=== PATIENT | female | born 1935 | race Caucasian/White ===

== ENCOUNTER → 2019-12-23 09:26 | Outpatient (POV) | payer MEDICARE, OTHER, SELFPAY | PROVIDERS: PCP Internal Medicine Adolescent Medicine; Visit Provider Dermatology | DX: Z00.00 Encounter for general adult medical examination without abnormal findings (principal) ==

== ENCOUNTER → 2020-02-10 13:20 | Outpatient (POV) | payer MEDICARE, OTHER, SELFPAY | PROVIDERS: Visit Provider Dermatology | DX: Z00.00 Encounter for general adult medical examination without abnormal findings (principal) ==

== ENCOUNTER → 2021-05-17 18:54 | Outpatient (CLI) | payer MEDICARE, OTHER, SELFPAY | PROVIDERS: Visit Provider Internal Medicine Adolescent Medicine | DX: R82.90 Unspecified abnormal findings in urine (principal) | CPT/HCPCS: 87086 ==

== ENCOUNTER 2024-12-22 14:40 | Emergency (ER) | payer MEDICARE, MEDICAID, SELFPAY ==
[2024-12-22 14:48] VITALS: BP 153/71; PULSE 71; RESP 16; TEMP 36.8; O2SAT 98; BMI 33.5
--- NOTE | 2024-12-22 14:53 | CT_ITS ---
PROCEDURE INFORMATION: Exam: CT Pelvis Without Contrast, Skeleton Exam date and time: 12/22/2024 4:45 PM Age: 89 years old Clinical indication: Hip pain; Left hip; Additional info: Pain in hip/xray neg TECHNIQUE: Imaging protocol: Computed tomography of the pelvis without contrast. Exam focused on the skeleton. Radiation optimization: All CT scans at this facility use at least one of these dose optimization techniques: automated exposure control; mA and/or kV adjustment per patient size (includes targeted exams where dose is matched to clinical indication); or iterative reconstruction. COMPARISON: CR XR FEMUR LT 2V 12/22/2024 4:21 PM FINDINGS: Urinary bladder: The bladder is moderately distended. 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 Soft tissues: Unremarkable. IMPRESSION: 1. Left hip arthroplasty, no evidence of fracture or dislocation. 2. Moderate the distended bladder.
--- OUTSIDE RECORDS SUMMARY | 2024-12-22 14:55 | XMS_ITS | Data Portability ---
Author Organization [facility] [place] Address [address] [place] [address] Care Team Providers Care Fur Sewer Name Role Phone JAQUELINE BELTRAN Family Medicine JAQUELINE BELTRAN Primary Care Provider Assessment No assessment recorded. Plan of Treatment Reminders Order Date Submit Date Provider Last Modified By Organization Details Last Modified Time Details Appointments None recorded. Lab CMP, serum or plasma [address] [facility] (Lab Registration) , [address] [place] [address] [place], [address], 4 08:01:58 CBC w/ auto diff [address] [facility] (Lab Registration) , [address] [place] [address] [place], [address], 4 08:01:59 hemoglobin A1C/hemoglo bin total, QN, blood [address] [facility] (Lab Registration) , [address] [place] [address] [place], [address], 4 08:01:59 TSH + free T4, serum [address] [facility] (Lab Registration) , [address] [place] [address] [place], [address], 4 08:01:59 lipids, total, serum 2023 024 [email or web address] [facility] (Lab Registration) , [address] [facility], [address], 4 08:01:59 vitamin D, 25-hydroxy, total, serum 2023 024 [facility] (Lab Registration) , [address] [place], [address], 4 20:20:39 CBC w/ auto diff [id number] [facility] (Lab Registration) , [address] [place], [address], 3 08:49:52 CMP, serum or plasma 2022 023 [email or web address] [facility] (Lab Registration) , [address] [facility], [address], 3 08:50:03 urinalysis, dipstick [address], [address] [place], [address], 3 09:05:42 vitamin B12, serum 2022 023 [facility] (Lab Registration) , [address] [place], [address], 3 21:09:18 TSH, serum or plasma 2022 023 [email or web address] [facility] (Lab Registration) , [address] [place], [address], 3 08:50:24 lipid panel, serum 2022 023 [email or web address] [facility] (Lab Registration) , [address] [facility], [address], 3 08:50:13 HbA1c (hemoglobin A1c), blood 2022 023 [facility] (Lab Registration) , [address] [place] [address] [place], [address], 3 19:31:45 culture, urine 2022 023 [facility] (Lab Registration) , [address] [place] [address] [place], [address], 3 19:44:55 iron + total iron-bindin g capacity (TIBC), serum [id number] [place] [address] Ctr (Lab Registration) , [address] [place] [address] [place], [address], 3 08:49:39 Referral None recorded. Procedures None recorded. Surgeries None recorded. Imaging None recorded. Medication Orders hydroxyzine HCl 25 mg tablet 2023 024 [facility], [address] [place] [address], [id number], 4 10:41:17 doxepin 10 mg capsule 2023 024 [facility], [address] [place] [address], [id number], 4 10:41:23 Medrol (Josse) 4 mg tablets in a dose pack 2023 024 [facility], [address] [place] [address], [id number], 4 10:41:25 clotrimazol e-betametha sone 1 %-0.05 % topical cream 2023 024 [facility], [address] [place] [address], [id number], 4 10:41:26 methylpredn isolone acetate 80 mg/mL suspension for injection 2023 024 [email or web address] Not available 13:47:21 Patient TargetsNo targets recorded. Patient Instructions Encounter Date Encounter Id Patient Instructions Last Modified By Organization Details Last Modified Time 09/19/2022 [id number] Stay Active Eat a healthy, balanced diet Stay hydrated; aim for 64 oz of water daily Exercise 2-3 days a week for 30-45 minutes Stay up to date on preventative care measures Labs drawn by Uyen Rios [facility] laborer construction or leak [employer] [email or web address] Not available 09/19/2022 08:43:03 Parts of this document were prepared using voice recognition software and may contain unrecognized dictation errors and word substitutions commonly found with electronic erecting engineer. Attempts have been made to correct errors during dictation, but some errors may remain. It should not be considered a word for word legal document, but is a record created to help myself and others care for the patient. I reserve the right to interpret this document as I believe it was intended and not necessarily the way it was transcribed. Health Assessment: [place] [facility] update: yes In general, how do you feel that your health is? Fair In the past 7 days, have had any of the following? None Do you have a Durable Power of Physician Advisor? Yes Do you have a Living Will? Yes Do you have any other Advanced Care Planning Documents? Yes Do you exercise for atleast 20 minutes 2-3 times a week? No Have you lost any weight without trying in the past 3 months? No Do you eat fewer than 2 meals a day? No Has it been over 1 year since your last saw the dentist? No Do you or your family notice any trouble with your hearing? No Do you have hearing aids? No Do you have any difficulty driving, watching TV, reading or doing other daily activities? No Do you wear corrective lenses? No Do you have any unfastened rugs or poor lighting in your home? No Do you ever ride in the car without your seatbelt? No In the past 7 days, do you need help performing any of the following activities? (Bathing, grooming, eating, dressing, toileting, dressing) Yes Do you have assistance, if needed? Yes In the past 7 days, did you need help performing any of the following tasks? (Laundry, Telephone Use, Housekeeping, Food prep, Banking/Finance, Transportation, Shopping, Taking medication) Yes Do you have someone to help you if needed? Yes Have you fallen 2 or more times in the past year? Yes Have you had any falls with injury in the past year? Yes Have you received any immunizations in the past year? No Which ones? Health Maintenance recommendations: Age related health measures. [email or web address] Not available 09/19/2022 10:42:02 08/23/2023 [id number] Parts of this document were prepared using voice recognition software and may contain unrecognized dictation errors and word substitutions commonly found with electronic erecting engineer. Attempts have been made to correct errors during dictation, but some errors may remain. It should not be considered a word for word legal document, but is a record created to help myself and others care for the patient. I reserve the right to interpret this document as I believe it was intended and not necessarily the way it was transcribed. [email or web address] Not available 08/23/2023 10:33:24 Reason for Referral None Reported. Results Created Date Observation Date Name Description Value Unit Range Abnormal Flag Note LastModifiedBy Organization Detail LastModifiedTime 09/20/1909/19/2022 CBC W/ AUTO DIFF WBC 5.09 K/uL 4.5-11 .5 Not Available [facility] (Pre-Op Clinic) [address] [place] [address] [place], [address], 09/19/2022 19:20:38 09/20/19 23 09/19/2022 CBC W/ AUTO DIFF RBC 4.17 M/uL 4.0-5. 4 Not Available [facility] (Pre-Op Clinic) [address] [place] [address] [place], [address], 09/19/2022 19:20:38 09/20/19 23 09/19/2022 CBC W/ AUTO DIFF HGB 12.4 g/dL 12.0-1 5.0 Not Available [facility] (Pre-Op Clinic) [address] [place] [address] [place], [address], 09/19/2022 19:20:38 09/20/19 23 09/19/2022 CBC W/ AUTO DIFF HCT 40.5 % 35-49 Not Available [facility] (Pre-Op Clinic) [address] [place], [address], 09/19/2022 19:20:38 09/20/19 23 09/19/2022 CBC W/ AUTO DIFF MCV 97.1 fL 80.0-1 00.0 Not Available [facility] (Pre-Op Clinic) [address] [place] [address] [place], [address], 09/19/2022 19:20:38 09/20/19 23 09/19/2022 CBC W/ AUTO DIFF MCH 29.7 pg 26.0-3 2.0 Not Available [facility] (Pre-Op Clinic) [address] [place] [address] [place], [address], 09/19/2022 19:20:38 09/20/19 23 09/19/2022 CBC W/ AUTO DIFF MCHC 30.6 g/dL 32.0-3 6.0 low Not Available [facility] (Pre-Op Clinic) [address] [place] [address] [place], [address], 09/19/2022 19:20:38 09/20/19 23 09/19/2022 CBC W/ AUTO DIFF RDW 13.2 % 11.5-1 4.5 Not Available [facility] (Pre-Op Clinic) [address] [place] [address] [place], [address], 09/19/2022 19:20:38 09/20/19 23 09/19/2022 CBC W/ AUTO DIFF platelet count 241 K/uL 142-42 4 Not Available [facility] ([facility]Op [facility]) [address] [place] [address] [place], [address], 09/19/2022 19:20:38 09/20/19 23 09/19/2022 CBC W/ AUTO DIFF MPV 10.1 fL 6.8-10 .2 Not Available [facility] (Pre[facility]Op [facility]) [address] [place] [address] [place], [address], 09/19/2022 19:20:38 09/20/19 23 09/19/2022 CBC W/ AUTO DIFF neutrophil % 59.1 % 50-70 Not Available [facility] (Pre-Op Clinic) [address] [place], [address], 09/19/2022 19:20:38 09/20/19 23 09/19/2022 CBC W/ AUTO DIFF lymphocyte % 21.6 % 18.0-4 2.0 Not Available [facility] (Pre-Op Clinic) [address] [place], [address], 09/19/2022 19:20:38 09/20/19 23 09/19/2022 CBC W/ AUTO DIFF monocyte % 11.6 % 2.0-11 .0 high Not Available [facility] (Pre-Op Clinic) [address] [place], [address], 09/19/2022 19:20:38 09/20/19 23 09/19/2022 CBC W/ AUTO DIFF eosinophil % 5.1 % 1.0-3. 0 high Not Available [facility] (Pre[facility]Op Clinic) [address] [place], [address], 09/19/2022 19:20:38 09/20/19 23 09/19/2022 CBC W/ AUTO DIFF basophil % 0.8 % 0.0-2. 0 Not Available [facility] (Pre[facility]Op Clinic) [address] [place] [address] [place], [address], 09/19/2022 19:20:38 09/20/19 23 09/19/2022 CBC W/ AUTO DIFF immature granulocytes % 1.8 % 0.0-0. 8 high Not Available [facility] (Pre-Op Clinic) [address] [place] [address] [place], [address], 09/19/2022 19:20:38 09/20/19 23 09/19/2022 CBC W/ AUTO DIFF nucleated red blood cells % 0.0 % Not Available [facility] (Pre[facility]Op Clinic) [address] [place] [address] [place], [address], 09/19/2022 19:20:38 09/20/19 23 09/19/2022 CBC W/ AUTO DIFF neutrophil # 3.01 K/uL Not Available [facility] (Pre[facility]Op [facility]) [address] [place], [address], 09/19/2022 19:20:38 09/20/19 23 09/19/2022 CBC W/ AUTO DIFF lymphocyte # 1.10 K/uL Not Available [facility] (Pre[facility]Op [facility]) [address] [place], [address], 09/19/2022 19:20:38 09/20/19 23 09/19/2022 CBC W/ AUTO DIFF monocyte # 0.59 K/uL Not Available [facility] (Pre[facility]Op [facility]) [address] [place], [address], 09/19/2022 19:20:38 09/20/19 23 09/19/2022 CBC W/ AUTO DIFF eosinophil # 0.26 K/uL Not Available [facility] (Pre[facility]Op [facility]) [address] [place], [address], 09/19/2022 19:20:38 09/20/19 23 09/19/2022 CBC W/ AUTO DIFF basophil # 0.04 K/uL Not Available [facility] (Pre-Op [facility]) [address] [place], [address], 09/19/2022 19:20:38 09/20/19 23 09/19/2022 CBC W/ AUTO DIFF immature gramulocytes # 0.09 K/uL Not Available [facility] (Pre-Op Clinic) [address] [place], [address], 09/19/2022 19:20:38 09/20/19 23 09/19/2022 CBC W/ AUTO DIFF nucleated red blood cells # 0.00 k/uL Not Available [facility] (Pre-Op Clinic) [address] [place], [address], 09/19/2022 19:20:38 09/20/19 23 09/19/2022 CBC W/ AUTO DIFF manual differential NO Not Available [facility] (Pre[facility]Op Clinic) [address] [place] [address] [place], [address], 09/19/2022 19:20:38 09/20/19 23 09/19/2022 CBC W/ AUTO DIFF note Unles s other green noted testi ng perfo [facility]med at: [facility] [address] [place] [address] Miguel Angel enamorado MD Not Available [facility] (Pre-Op Clinic) [address] [place] [address] [place], [address], 09/19/2022 19:20:38 09/20/19 23 09/19/2022 HEMOG LOBIN A1C HGB A1C 5.3 % 4.3-6. 1 HEMOG LOBIN LEVEL S ARE RELAT ED TO MEAN BLOOD GLUCO SE LEVEL S DURIN G THE PRECE DING 2-3 MONTH S. REFER ENCE RANGE NON-D IABET IC PATIE NTS: 4.3 - 6.1 % DIABE TIC PATIE NTS: 6.2 % AND ABOVE Not Available [facility] (Pre-Op Clinic) [address] [place] [address] [place], [address], 09/19/2022 19:31:45 09/20/19 23 09/19/2022 HEMOG LOBIN A1C estimated average glucose(EAG) 105 mg/dL 77-128 Not Available [facility] (Pre-Op Clinic) [address] [place] [address] [place], [address], 09/19/2022 19:31:45 09/20/19 23 09/19/2022 HEMOG LOBIN A1C note Unles s other green noted testi ng perfo rmed at: [facility] [address] [place] [address] Miguel Angel enamorado MD Not Available [facility] (Pre-Op Clinic) [address] [place] [address] [place], [address], 09/19/2022 19:31:45 09/20/19 23 09/19/2022 CULTU RE URINE W PRESU MP ID results [facility] 09-20 859 No Signi fican t Growt h at 1 Day [facility] 09-21 832 No Signi fican t Growt h at 2 Days Not Available [facility] (Pre[facility]Op Clinic) [address] [place] [address] [place], [address], 09/21/2022 08:33:56 09/20/19 23 09/19/2022 CULTU RE URINE W PRESU MP ID note Unles s other green noted testi ng perfo rmed at: [facility] [address] [place] [address] Miguel Angel enamorado MD Not Available [facility] (Pre[facility]Op Clinic) [address] [place] [address] [place], [address], 09/21/2022 08:33:56 09/20/19 23 09/19/2022 COMP METAB OLIC PANEL sodium 138 mmol/ L 137-14 7 Not Available [facility] (Pre[facility]Op Clinic) [address] [place] [address] [place], [address], 09/19/2022 20:25:24 09/20/19 23 09/19/2022 COMP METAB OLIC PANEL potassium 5.2 mmol/ L 3.5-5. 1 high Not Available [facility] (Pre-Op Clinic) [address] [place] [address] [place], [address], 09/19/2022 20:25:24 09/20/19 23 09/19/2022 COMP METAB OLIC PANEL chloride 102 mmol/ L 98-110 Not Available [facility] (Pre[facility]Op Clinic) [address] [place], [address], 09/19/2022 20:25:24 09/20/19 23 09/19/2022 COMP METAB OLIC PANEL carbon dioxide 28 mmol/ L 21-30 Not Available [facility] (Pre-Op Clinic) [address] [place], [address], 09/19/2022 20:25:24 09/20/19 23 09/19/2022 COMP METAB OLIC PANEL anion gap 8 mmol/ L 6-14 Not Available [facility] (Pre[facility]Op [facility]) [address] [place], [address], 09/19/2022 20:25:24 09/20/19 23 09/19/2022 COMP METAB OLIC PANEL glucose 97 mg/dL 70-115 Not Available [facility] (Pre[facility]Op Clinic) [address] [place], [address], 09/19/2022 20:25:24 09/20/19 23 09/19/2022 COMP METAB OLIC PANEL BUN 32 mg/dL 7-17 high Not Available [facility] (Pre[facility]Op [facility]) [address] [place], [address], 09/19/2022 20:25:24 09/20/19 23 09/19/2022 COMP METAB OLIC PANEL creatinine 1.5 mg/dL 0.5-1. 5 Not Available [facility] (Pre[facility]Op [facility]) [address] [place], [address], 09/19/2022 20:25:24 09/20/19 23 09/19/2022 COMP METAB OLIC PANEL BUN/creatini ne ratio 21 ratio 10-20 high Not Available [facility] (Pre[facility]Op Clinic) [address] [place] [address] [place], [address], 09/19/2022 20:25:24 09/20/19 23 09/19/2022 COMP METAB OLIC PANEL glom filtration rate TNP mL/mi n >60- GFR has only been valid ated for patie nts 18-70 years of age. Not Available [facility] (Pre[facility]Op [facility]) [address] [place] [address] [place], [address], 09/19/2022 20:25:24 09/20/19 23 09/19/2022 COMP METAB OLIC PANEL osmolality (calculated) 294 mosmo l/kg 275-30 1 OSMOL ALITY IS A CALCU LATIO N UTILI ZING THE SERUM /PLAS MA SODIU M, GLUCO SE AND UREA NITRO GEN (BUN) LEVEL S. FOR THE MOST ACCUR ATE RESUL T A MEASU RED SERUM OSMOL ALITY IS SUGGE STED. Not Available [facility] (Pre[facility]Op [facility]) [address] [place] [address] [place], [address], 09/19/2022 20:25:24 09/20/19 23 09/19/2022 COMP METAB OLIC PANEL total protein 7.7 g/dL 6.2-8. 2 Not Available [facility] (Pre[facility]Op [facility]) [address] [place] [address] [place], [address], 09/19/2022 20:25:24 09/20/19 23 09/19/2022 COMP METAB OLIC PANEL albumin 4.6 g/dL 3.5-5. 0 Not Available [facility] (Pre[facility]Op [facility]) [address] [place] [address] [place], [address], 09/19/2022 20:25:24 09/20/19 23 09/19/2022 COMP METAB OLIC PANEL calcium 8.8 mg/dL 8.5-10 .8 Not Available [facility] (Pre[facility]Op [facility]) [address] [place] [address] [place], [address], 09/19/2022 20:25:24 09/20/19 23 09/19/2022 COMP METAB OLIC PANEL bilirubin total 0.2 mg/dL 0.2-1. 3 Not Available [facility] (Pre[facility]Op [facility]) [address] [place] [address] [place], [address], 09/19/2022 20:25:24 09/20/19 23 09/19/2022 COMP METAB OLIC PANEL AST (SGOT) 25 IU/L 14-36 Not Available [facility] (Pre-Op Clinic) [address] [place] [address] [place], [address], 09/19/2022 20:25:24 09/20/19 23 09/19/2022 COMP METAB OLIC PANEL ALT (SGPT) 16 IU/L 0-35 Pleas e note new refer ence inter angi for ALT. Due to a recen t manuf actur er metho dolog y dean e, the refer ence inter angi for ALT is lower effec tive September 23, 2020. Not Available [facility] (Pre-Op Clinic) [address] [place] [address] [place], [address], 09/19/2022 20:25:24 09/20/19 23 09/19/2022 COMP METAB OLIC PANEL alk phosphatase 80 IU/L 38-126 Not Available [facility] (Pre-Op Clinic) [address] [place] [address] [place], [address], 09/19/2022 20:25:24 09/20/19 23 09/19/2022 COMP METAB OLIC PANEL note Unles s other green noted testi ng perfo rmed at: [facility] [address] [place] [address] Miguel Angel enamorado MD Not Available [facility] (Pre[facility]Op [facility]) [address] [place] [address] [place], [address], 09/19/2022 20:25:24 09/20/19 23 09/19/2022 LIPID PANEL cholesterol 175 mg/dL 0-200 Not Available [facility] (Pre-Op Clinic) [address] [place] [address] [place], [address], 09/19/2022 20:25:25 09/20/19 23 09/19/2022 LIPID PANEL HDL 65 mg/dL 40- Not Available [facility] (Pre-Op Clinic) [address] [place], [address], 09/19/2022 20:25:25 09/20/19 23 09/19/2022 LIPID PANEL total chol/HDL ratio 2.7 ratio 0-4 Not Available [facility] ([facility]Op [facility]) [address] [place], [address], 09/19/2022 20:25:25 09/20/19 23 09/19/2022 LIPID PANEL triglyceride 129 mg/dL 35-135 Not Available [facility] ([facility]Op [facility]) [address] [place], [address], 09/19/2022 20:25:25 09/20/19 23 09/19/2022 LIPID PANEL LDL calculated 84 mg/dL 0-130 Not Available [facility] ([facility]Op [facility]) [address] [place], [address], 09/19/2022 20:25:25 09/20/19 23 09/19/2022 LIPID PANEL VLDL calculated 26 mg/dL 0-40 Not Available [facility] ([facility]Op [facility]) [address] [place], [address], 09/19/2022 20:25:25 09/20/19 23 09/19/2022 LIPID PANEL note Unles s other green noted testi ng perfo [facility]med at: [facility] [address] [place] [address] Miguel Angel enamorado MD Not Available [facility] ([facility]Op [facility]) [address] [place], [address], 09/19/2022 20:25:25 09/20/19 23 09/19/2022 IRON STUDY W FE/TI BC/UI BC/%S AT iron 136 ug/dL 37-170 Not Available [facility] ([facility]Op [facility]) [address] [place], [address], 09/19/2022 20:28:42 09/20/19 23 09/19/2022 IRON STUDY W FE/TI BC/UI BC/%S AT total iron bind cap. 393 ug/dL 265-49 7 Not Available [facility] ([facility]Op [facility]) [address] [place] [address] [place], [address], 09/19/2022 20:28:42 09/20/19 23 09/19/2022 IRON STUDY W FE/TI BC/UI BC/%S AT unsaturated iron binding cap 257 ug/dL 150-37 5 Not Available [facility] (Pre[facility]Op [facility]) [address] [place] [address] [place], [address], 09/19/2022 20:28:42 09/20/19 23 09/19/2022 IRON STUDY W FE/TI BC/UI BC/%S AT % saturation 35 % 15-55 Not Available [facility] ([facility]Op [facility]) [address] [place] [address] [place], [address], 09/19/2022 20:28:42 09/20/19 23 09/19/2022 IRON STUDY W FE/TI BC/UI BC/%S AT note Unles s other green noted testi ng perfo rmed at: [facility] [address] [place] [address] Miguel Angel enamorado MD Not Available [facility] ([facility]Op [facility]) [address] [place] [address] [place], [address], 09/19/2022 20:28:42 09/20/19 23 09/19/2022 TSH thyroid stim hormone 1.71 uIU/m L 0.465- 4.68 Not Available [facility] ([facility]Op [facility]) [address] [place] [address] [place], [address], 09/19/2022 20:50:51 09/20/19 23 09/19/2022 TSH note Unles s other green noted testi ng perfo rmed at: [facility] [address] [place] [address] Miguel Angel enamorado MD Not Available [facility] ([facility]Op [facility]) [address] [place] [address] [place], [address], 09/19/2022 20:50:51 09/20/19 23 09/19/2022 VITAM IN B12 vitamin B12 978 pg/mL 239-93 1 high Not Available [facility] ([facility]Op [facility]) [address] [place] [address] [place], [address], 09/19/2022 21:09:18 09/20/19 23 09/19/2022 VITAM IN B12 note Unles s other green noted testi ng [facility] [address] [place] [address] Miguel Angel enamorado MD Not Available [facility] (Pre[facility]Op [facility]) [address] [place] [address] [place], [address], 09/19/2022 21:09:18 09/20/19 23 09/19/2022 urina lysis , dipst ick Leukocytes (reference range) small Not Available [address], [address], 09/19/2022 08:42:09 09/20/19 23 09/19/2022 urina lysis , dipst ick Nitrite (reference range:) negati ve Not Available [facility] [address] [place], [address], 09/19/2022 08:42:09 09/20/19 23 09/19/2022 urina lysis , dipst ick Urobilinogen (reference range) 0.2 Not Available [address], [address], 09/19/2022 08:42:09 09/20/19 23 09/19/2022 urina lysis , dipst ick Protein (reference range) negati ve Not Available [address] [place], [address], 09/19/2022 08:42:09 09/20/19 23 09/19/2022 urina lysis , dipst ick pH (reference range 5-8.5) 5.5 Not Available [place] [address], [place], [address], 09/19/2022 08:42:09 09/20/19 23 09/19/2022 urina lysis , dipst ick Blood (reference range:) modera te Not Available [place] [address], [place], [address], 09/19/2022 08:42:09 09/20/19 23 09/19/2022 urina lysis , dipst ick Specific [place] (reference range) 1.010 Not Available [place] [address], [place], [address], 09/19/2022 08:42:09 09/20/19 23 09/19/2022 urina lysis , dipst ick Ketone (reference range) negati ve Not Available [place] [address], [place], [address], 09/19/2022 08:42:09 09/20/19 23 09/19/2022 urina lysis , dipst ick Bilirubin (reference range) negati ve Not Available [place] [address], [place], [address], 09/19/2022 08:42:09 09/20/19 23 09/19/2022 urina lysis , dipst ick Glucose (reference range) negati ve Not Available [facility] [address], [place], [address], 09/19/2022 08:42:09 09/20/19 09/19/2022 urina lysis , dipst ick Color (reference range: yellow-brown ) Yellow Not Available [facility] [address] [facility], [place], [address], 09/19/2022 08:42:09 08/23/19 24 08/23/2023 CBC W/ AUTO DIFF WBC 6.69 K/uL 4.5-11 .5 Not Available [facility] (Pre[facility]Op [facility]) [address] [place] [address] [place], [address], 08/23/2023 19:11:35 08/23/19 24 08/23/2023 CBC W/ AUTO DIFF RBC 3.72 M/uL 4.0-5. 4 low Not Available [facility] (Pre[facility]Op [facility]) [address] [place] [address] [place], [address], 08/23/2023 19:11:35 08/23/19 24 08/23/2023 CBC W/ AUTO DIFF HGB 11.3 g/dL 12.0-1 5.0 low Not Available [facility] (Pre-Op Clinic) [address] [place] [address] [place], [address], 08/23/2023 19:11:35 08/23/19 24 08/23/2023 CBC W/ AUTO DIFF HCT 37.1 % 35-49 Not Available [facility] (Pre-Op Clinic) [address] [place] [address] [place], [address], 08/23/2023 19:11:35 08/23/19 24 08/23/2023 CBC W/ AUTO DIFF MCV 99.7 fL 80.0-1 00.0 Not Available [facility] (Pre-Op Clinic) [address] [place] [address] [place], [address], 08/23/2023 19:11:35 08/23/19 24 08/23/2023 CBC W/ AUTO DIFF MCH 30.4 pg 26.0-3 2.0 Not Available [facility] (Pre-Op Clinic) [address] [place] [address] [place], [address], 08/23/2023 19:11:35 08/23/19 24 08/23/2023 CBC W/ AUTO DIFF MCHC 30.5 g/dL 32.0-3 6.0 low Not Available [facility] (Pre-Op [facility]) [address] [place] [address] [place], [address], 08/23/2023 19:11:35 08/23/19 24 08/23/2023 CBC W/ AUTO DIFF RDW 15.0 % 11.5-1 4.5 high Not Available [facility] (Pre[facility]Op [facility]) [address] [place] [address] [place], [address], 08/23/2023 19:11:35 08/23/19 24 08/23/2023 CBC W/ AUTO DIFF platelet count 264 K/uL 142-42 4 Not Available [facility] (Pre[facility]Op [facility]) [address] [place] [address] [place], [address], 08/23/2023 19:11:35 08/23/19 24 08/23/2023 CBC W/ AUTO DIFF MPV 10.5 fL 6.8-10 .2 high Not Available [facility] (Pre[facility]Op [facility]) [address] [place] [address] [place], [address], 08/23/2023 19:11:35 08/23/19 24 08/23/2023 CBC W/ AUTO DIFF neutrophil % 72.1 % 50-70 high Not Available [facility] (Pre[facility]Op [facility]) [address] [place] [address] [place], [address], 08/23/2023 19:11:35 08/23/19 24 08/23/2023 CBC W/ AUTO DIFF lymphocyte % 10.9 % 18.0-4 2.0 low Not Available [facility] (Pre[facility]Op [facility]) [address] [place] [address] [place], [address], 08/23/2023 19:11:35 08/23/19 24 08/23/2023 CBC W/ AUTO DIFF monocyte % 10.8 % 2.0-11 .0 Not Available [facility] (Pre[facility]Op [facility]) [address] [facility], [address], 08/23/2023 19:11:35 08/23/19 24 08/23/2023 CBC W/ AUTO DIFF eosinophil % 4.0 % 1.0-3. 0 high Not Available [facility] (Pre[facility]Op [facility]) [address] [place], [address], 08/23/2023 19:11:35 08/23/19 24 08/23/2023 CBC W/ AUTO DIFF basophil % 0.9 % 0.0-2. 0 Not Available [facility] (Pre[facility]Op [facility]) [address] [place] [address] [place], [address], 08/23/2023 19:11:35 08/23/19 24 08/23/2023 CBC W/ AUTO DIFF immature granulocytes % 1.3 % 0.0-0. 8 high Not Available [facility] ([facility]Op [facility]) [address] [place] [address] [place], [address], 08/23/2023 19:11:35 08/23/19 24 08/23/2023 CBC W/ AUTO DIFF nucleated red blood cells % 0.0 % Not Available [facility] (Pre-Op Clinic) [address] [place] [address] [place], [address], 08/23/2023 19:11:35 08/23/19 24 08/23/2023 CBC W/ AUTO DIFF neutrophil # 4.82 K/uL Not Available [facility] (Pre-Op Clinic) [address] [place] [address] [place], [address], 08/23/2023 19:11:35 08/23/19 24 08/23/2023 CBC W/ AUTO DIFF lymphocyte # 0.73 K/uL Not Available [facility] (Pre-Op Clinic) [address] [place] [address] [place], [address], 08/23/2023 19:11:35 08/23/19 24 08/23/2023 CBC W/ AUTO DIFF monocyte # 0.72 K/uL Not Available [facility] ([facility]Op [facility]) [address] [place] [address] [place], [address], 08/23/2023 19:11:35 08/23/19 24 08/23/2023 CBC W/ AUTO DIFF eosinophil # 0.27 K/uL Not Available [facility] ([facility]Op [facility]) [address] [place] [address] [place], [address], 08/23/2023 19:11:35 08/23/19 24 08/23/2023 CBC W/ AUTO DIFF basophil # 0.06 K/uL Not Available [facility] (Pre-Op [facility]) [address] [place] [address] [place], [address], 08/23/2023 19:11:35 08/23/19 24 08/23/2023 CBC W/ AUTO DIFF immature gramulocytes # 0.09 K/uL Not Available [facility] ([facility]Op [facility]) [address] [place] [address] [place], [address], 08/23/2023 19:11:35 08/23/19 24 08/23/2023 CBC W/ AUTO DIFF nucleated red blood cells # 0.00 k/uL Not Available [facility] (Pre-Op [facility]) [address] [place] [address] [place], [address], 08/23/2023 19:11:35 08/23/19 24 08/23/2023 CBC W/ AUTO DIFF manual differential NO Not Available [facility] (Pre-Op Clinic) [address] [place] [address] [place], [address], 08/23/2023 19:11:35 08/23/19 24 08/23/2023 CBC W/ AUTO DIFF note Unles s other green noted testi ng perfo [facility]med at: [facility] [address] [place] [address] Miguel Angel enamorado MD Not Available [facility] (Pre[facility]Op [facility]) [address] [place] [address] [place], [address], 08/23/2023 19:11:35 08/23/19 24 08/23/2023 COMP METAB OLIC PANEL sodium 141 mmol/ L 137-14 7 Not Available [facility] ([facility]Op [facility]) [address] [place] [address] [place], [address], 08/23/2023 20:11:04 08/23/19 24 08/23/2023 COMP METAB OLIC PANEL potassium 4.9 mmol/ L 3.5-5. 1 Not Available [facility] ([facility]Op [facility]) [address] [place] [address] [place], [address], 08/23/2023 20:11:04 08/23/19 24 08/23/2023 COMP METAB OLIC PANEL chloride 106 mmol/ L 98-110 Not Available [facility] ([facility]Op [facility]) [address] [place] [address] [place], [address], 08/23/2023 20:11:04 08/23/19 24 08/23/2023 COMP METAB OLIC PANEL carbon dioxide 26 mmol/ L 21-30 Not Available [facility] (Pre[facility]Op [facility]) [address] [place] [address] [place], [address], 08/23/2023 20:11:04 08/23/19 24 08/23/2023 COMP METAB OLIC PANEL anion gap 9 mmol/ L 6-14 Not Available [facility] ([facility]Op [facility]) [address] [place] [address] [place], [address], 08/23/2023 20:11:04 08/23/19 24 08/23/2023 COMP METAB OLIC PANEL glucose 99 mg/dL 70-115 Not Available [facility] (Pre-Op [facility]) [address] [place] [address] [place], [address], 08/23/2023 20:11:04 08/23/19 24 08/23/2023 COMP METAB OLIC PANEL BUN 34 mg/dL 7-17 high Not Available [facility] ([facility]) [address] [place] [address] [place], [address], 08/23/2023 20:11:04 08/23/19 24 08/23/2023 COMP METAB OLIC PANEL creatinine 1.7 mg/dL 0.5-1. 5 high Not Available [facility] ([facility]Op [facility]) [address] [place] [address] [place], [address], 08/23/2023 20:11:04 08/23/19 24 08/23/2023 COMP METAB OLIC PANEL BUN/creatini ne ratio 20 ratio 10-20 Not Available [facility] ([facility]Op [facility]) [address] [place] [address] [place], [address], 08/23/2023 20:11:04 08/23/19 24 08/23/2023 COMP METAB OLIC PANEL glom filtration rate TNP mL/mi n >60- GFR has only been valid ated for patie nts 18-70 years of age. Not Available [facility] (Pre[facility]Op [facility]) [address] [place] [address] [place], [address], 08/23/2023 20:11:04 08/23/19 24 08/23/2023 COMP METAB OLIC PANEL osmolality (calculated) 301 mosmo l/kg 275-30 1 OSMOL ALITY IS A CALCU LATIO N UTILI ZING THE SERUM /PLAS MA SODIU M, GLUCO SE AND UREA NITRO GEN (BUN) LEVEL S. FOR THE MOST ACCUR ATE RESUL T A MEASU RED SERUM OSMOL ALITY IS SUGGE STED. Not Available [facility] ([facility]Op [facility]) [address] [place] [address] [place], [address], 08/23/2023 20:11:04 08/23/19 24 08/23/2023 COMP METAB OLIC PANEL total protein 7.1 g/dL 6.2-8. 2 Not Available [facility] (Pre-Op [facility]) [address] [place] [address] [place], [address], 08/23/2023 20:11:04 08/23/19 24 08/23/2023 COMP METAB OLIC PANEL albumin 4.1 g/dL 3.5-5. 0 Not Available [facility] ([facility]Op [facility]) [address] [place] [address] [place], [address], 08/23/2023 20:11:04 08/23/19 24 08/23/2023 COMP METAB OLIC PANEL calcium 8.8 mg/dL 8.5-10 .8 Not Available [facility] ([facility]) [address] [place] [address] [place], [address], 08/23/2023 20:11:04 08/23/19 24 08/23/2023 COMP METAB OLIC PANEL bilirubin total 0.4 mg/dL 0.2-1. 3 Not Available [facility] ([facility]Op [facility]) [address] [place] [address] [place], [address], 08/23/2023 20:11:04 08/23/19 24 08/23/2023 COMP METAB OLIC PANEL AST (SGOT) 23 IU/L 14-36 Not Available [facility] ([facility]) [address] [place] [address] [place], [address], 08/23/2023 20:11:04 08/23/19 24 08/23/2023 COMP METAB OLIC PANEL ALT (SGPT) 15 IU/L 0-35 Pleas e note new refer ence inter angi for ALT. Due to a recen t manuf actur er metho dolog y dean e, the refer ence inter angi for ALT is lower effec tive September 23, 2020. Not Available [facility] ([facility]Op [facility]) [address] [place] [address] [place], [address], 08/23/2023 20:11:04 08/23/19 24 08/23/2023 COMP METAB OLIC PANEL alk phosphatase 89 IU/L 38-126 Not Available [facility] (Pre[facility]Op [facility]) [address] [facility], [address], 08/23/2023 20:11:04 08/23/19 24 08/23/2023 COMP METAB OLIC PANEL note Unles s other green noted testi ng perfo rmed at: [facility] [address] [place] [address] Miguel Angel enamorado MD Not Available [facility] ([facility]Op [facility]) [address] [place], [address], 08/23/2023 20:11:04 08/23/19 24 08/23/2023 LIPID PANEL cholesterol 136 mg/dL 0-200 Not Available [facility] ([facility]) [address] [place], [address], 08/23/2023 20:11:05 08/23/19 24 08/23/2023 LIPID PANEL HDL 51 mg/dL 40- Not Available [facility] (Pre[facility]Op [facility]) [address] [place], [address], 08/23/2023 20:11:05 08/23/19 24 08/23/2023 LIPID PANEL total chol/HDL ratio 2.7 ratio 0-4 Not Available [facility] (Pre[facility]Op [facility]) [address] [place], [address], 08/23/2023 20:11:05 08/23/19 24 08/23/2023 LIPID PANEL triglyceride 105 mg/dL 35-135 Not Available [facility] ([facility]Op [facility]) [address] [facility], [address], 08/23/2023 20:11:05 08/23/19 24 08/23/2023 LIPID PANEL LDL calculated 64 mg/dL 0-130 Not Available [facility] ([facility]Op [facility]) [address] [place], [address], 08/23/2023 20:11:05 08/23/19 24 08/23/2023 LIPID PANEL VLDL calculated 21 mg/dL 0-40 Not Available [facility] ([facility]) [address] [place] [address] [place], [address], 08/23/2023 20:11:05 08/23/19 24 08/23/2023 LIPID PANEL note Unles s other green noted testi ng perfo [facility]med at: [facility] [address] [place] [address] Miguel Angel enamorado MD Not Available [facility] ([facility]Op [facility]) [address] [place] [address] [place], [address], 08/23/2023 20:11:05 08/23/19 24 08/23/2023 HEMOG LOBIN A1C HGB A1C 5.3 % 4.3-6. 1 HEMOG LOBIN LEVEL S ARE RELAT ED TO MEAN BLOOD GLUCO SE LEVEL S DURIN G THE PRECE DING 2-3 MONTH S. REFER ENCE RANGE NON-D IABET IC PATIE NTS: 4.3 - 6.1 % DIABE TIC PATIE NTS: 6.2 % AND ABOVE Not Available [facility] (Pre-Op [facility]) [address] [place] [address] [place], [address], 08/23/2023 20:15:24 08/23/19 24 08/23/2023 HEMOG LOBIN A1C estimated average glucose(EAG) 105 mg/dL 77-128 Not Available [facility] ([facility]Op [facility]) [address] [place] [address] [place], [address], 08/23/2023 20:15:24 08/23/19 24 08/23/2023 HEMOG LOBIN A1C note Unles s other green noted testi ng perfo rmed at: [facility] [address] [place] [address] Miguel Angel enamorado MD Not Available [facility] ([facility]Op [facility]) [address] [place] [address] [place], [address], 08/23/2023 20:15:24 08/23/19 24 08/23/2023 VITAM IN D, 25-HY DROXY vitamin D, 25-hydroxy 51.6 NG/mL 30-100 Vitam in D defic iency has been defin ed by the [facility] and [facility] rine [facility] ty pract ice guide line as a level of serum 25-OH vitam in D less than 20 ng/mL . The Endoc rine Socie ty went on to fur er defin e vitam in D insuf ficie ncy as a level betwe en 20 and 29 ng/mL . Level s of vitam in D betwe en 30 and 100 ng/mL are consi dered suffi ent. Level s above 100 ng/mL are consi dered poten tiall y toxic . Not Available [facility] ([facility]Op [facility]) [address] [place] [address] [place], [address], 08/23/2023 20:20:39 08/23/19 24 08/23/2023 VITAM IN D, 25-HY DROXY note Unles s other green noted testi ng perfo rmed at: [facility] [address] [place] [address] Miguel Angel enamorado MD Not Available [facility] ([facility]Op [facility]) [address] [place] [address] [place], [address], 08/23/2023 20:20:39 08/23/19 24 08/23/2023 T4 FREE T4 free 1.09 NG/dL 0.78-2 .19 Not Available [facility] ([facility]Op [facility]) [address] [place] [address] [place], [address], 08/23/2023 20:26:01 08/23/19 24 08/23/2023 T4 FREE note Unles s other green noted testi ng perfo rmed at: [facility] [address] [place] [address] Miguel Angel enamorado MD Not Available [facility] ([facility]) [address] [place] [address] [place], [address], 08/23/2023 20:26:01 08/23/19 24 08/23/2023 TSH thyroid stim hormone 1.57 uIU/m L 0.465- 4.68 Not Available [facility] ([facility]Op [facility]) [address] [place] [address] [place], [address], 08/23/2023 20:45:06 08/23/19 24 08/23/2023 TSH note Dana green noted testi ng perfo rmed at: [facility] [address] [place] [address] Miguel Angel enamorado MD Not Available [facility] ([facility]) [address] [place] [address] [place], [address], 08/23/2023 20:45:06 Result Notes None recorded. Problems Name Problem SNOMED Code Status Onset Date Resolution Date Notes Provider Name and Address Organization Details Recorded Time Pain 05236033 Active phuong maloney null, [place] - [facility] - [facility] & [place] 3 08:15:08 Wedge fracture of lumbar vertebra 853355850 Active phuong maloney null[place] [facility] - [facility] & [place] 3 08:15:08 Acute pulmonary edema 17143552 Active phuong maloney [place] [facility] - [facility] & [place] 3 08:15:08 Atrial fibrillation 90171439 Active phuong [place] [facility] - [facility] & [place] 3 08:15:08 Visual hallucinations 54723576 Active phuong [place] [facility] - [facility] & [place] 3 08:15:09 Cyst of pancreas 39821548 Active 2022 phuong [place] [facility] - [place] & [place] 3 08:15:08 Irritable bowel syndrome with diarrhea 586397677 Active 2022 phuong [place] [facility] [place] & [place] 3 08:15:08 Iron deficiency anemia 30030509 Active 2022 phuong [place] [facility] - [place] & [place] 3 08:15:09 Fatigue 02083135 Active 2022 Jaqueline Beltran NP [address], [address], [place], [address], [place] [facility] - [place] & [place] 3 08:42:40 Blood in urine 55029516 Active 2022 phuong [place] [facility] [place] & [place] 3 09:07:21 Pruritic rash 74900614 Active 2022 Jaqueline Beltran NP [address], [address], [place], [address], [place] [facility] [place] & [place] 3 16:21:02 Generalized anxiety disorder 99032378 Active 2022 Jaqueline Beltran NP [address], [address], [place], [address], [place] [facility] [place] & [place] 3 14:31:09 Vitamin B12 deficiency (non anemic) 70487341 Active 2023 Jaqueline Beltran NP [address], [address], [place], [address], [place] [facility] [place] & [place] 4 14:12:39 Chronic constipation 963131669 Active 2023 Jaqueline Beltran NP [address], [address], [place], [address], [place] [facility] [place] & [place] 4 14:12:50 Acute cystitis 89496791 Active 2023 Jaqueline Beltran NP [address], [address], [place], [address], [place] [facility] [place] & [place] 4 17:03:00 Problem Notes None recorded. Procedures Surgical History Date Name Laterality Status Provider Name and Address Organization Details Recorded Time 2 Other completed Phuong HERBERT [facility] & [place] 01/04/2023 08:52:59 2 Back Surgery completed Phuong HERBERT [facility] & [place] 01/04/2023 08:52:59 2 Joint Replacement completed Phuong HERBERT [facility] & [place] 01/04/2023 08:52:59 3 Pacemaker/Defib rillator completed Phuong HERBERT [facility] & [place] 01/04/2023 08:52:59 0 Breast Surgery completed Phuong BLEVINS KEON [facility] & [place] 01/04/2023 08:52:59 0 Mastectomy completed Phuong HERBERT [facility] & [place] 01/04/2023 08:52:59 Abdominal Surgery completed Phuong HERBERT [facility] & [place] 01/04/2023 08:52:59 Imaging Results None recorded. Procedure Notes None recorded. Medical Equipment None Reported. Allergies Allergen ID Allergen Name Allergen Category Reaction Reaction Severity Criticality Documentation Date Start Date Code Code System Note Provider Name and Address Organization Details Recorded Time 68573 Product containin g penicilli n (product) medicatio n swelling severe Not available 09/19/2022 [id number] 8001 SNOMED FELICITY daly [facility] & [place] 3 08:15:23 Medications Name Sig Start Date Stop Date Status Note LastModified by Organization Details LastModified Time quetiapine 25 mg tablet TAKE 1 TABLET BY MOUTH ONCE DAILY ONCE DAILY AT BEDTIME active Not Available Not Available No t Available furosemide 10 mg/mL injection solution 40 mg by injection route. 04/10 completed Not Available Not Available Not Available lidocaine HCl 10 mg/mL (1 %) injection solution 20 mL by injection route. 04/13 completed Not Available Not Available Not Available potassium chloride ER 10 mEq capsule,ext ended release Take 1 capsule 3 times a week by oral route with meals for 90 days. 08/22 completed Not Available Not Available Not Available donepezil 5 mg tablet TAKE 1 TABLET BY MOUTH ONCE DAILY AT BEDTIME active Not Available Not Available No t Available triamcinolo ne acetonide 0.5 % topical cream APPLY TO AFFECTED AREA TWICE DAILY NEEDED active Not Available Not Available No t Available cetirizine 10 mg tablet 10 mg by oral route. 04/14 completed Not Available Not Available Not Available atorvastati n 10 mg tablet 10 mg by oral route. 04/14 completed Not Available Not Available Not Available simethicone 180 mg capsule 180 mg by oral route. 2021 active Not Available Not Available Not Avai lable atenolol 100 mg tablet TAKE 1 TABLET BY MOUTH ONCE DAILY active Not Available Not Available No t Available hydrocodone 5 mg-acetamin ophen 325 mg tablet 1 tablet by oral route. 04/14 completed Not Available Not Available Not Available lorazepam 2 mg/mL injection solution 0.5 mg by injection route. 04/13 completed Not Available Not Available Not Available diltiazem CD 240 mg capsule,ext ended release 24 hr TAKE 1 CAPSULE BY MOUTH ONCE DAILY. 2023 active Not Available Not Available Not Avai lable simvastatin 10 mg tablet TAKE 1 TABLET BY MOUTH ONCE DAILY AT BEDTIME active Not Available Not Available No t Available cyanocobala min (vit B-12) 1,000 mcg tablet TAKE 1 TABLET BY MOUTH ONCE DAILY active Not Available Not Available No t Available diltiazem ER 240 mg capsule,24 hr,extended release active Not Available Not Available Not Available triamcinolo ne acetonide 0.5 % topical ointment TOPICAL APPLY TWICE DAILY TO AREAS NEEDED FOR ITCHING. 08/24 completed Not Available Not Available Not Available potassium chloride ER 10 mEq tablet,exte nded release Take 1 tablet by oral route. 10/10 completed Not Available Not Available Not Available melatonin 3 mg tablet 6 mg by oral route. 04/14 completed Not Available Not Available Not Available amlodipine 5 mg tablet 10 mg by oral route. 04/11 completed Not Available Not Available Not Available doxepin 10 mg capsule TAKE 1 CAPSULE BY MOUTH ONCE DAILY AT BEDTIME active Not Available Not Available No t Available hydrocodone 10 mg-acetamin ophen 325 mg tablet 1 tablet by oral route. 04/14 completed Not Available Not Available Not Available aspirin 81 mg tablet,willy yed release TAKE 1 TABLET BY MOUTH ONCE DAILY active Not Available Not Available No t Available triamcinolo ne acetonide 0.1 % topical cream 08/22 completed Not Available Not Available Not Available methylpredn isolone acetate 80 mg/mL suspension for injection Take 80 mg by injection route. 2023 active Not Available Not Available Not Avai lable amlodipine 10 mg tablet Take 10 mg by oral route. 08/22 completed Not Available Not Available Not Available hydrocodone 7.5 mg-acetamin ophen 325 mg tablet Take 1 tablet by oral route. 08/22 completed Not Available Not Available Not Available pantoprazol e 40 mg tablet,willy yed release 40 mg by oral route. 04/14 completed Not Available Not Available Not Available erythromyci n 5 mg/gram (0.5 %) eye ointment 08/24 completed Not Available Not Available Not Available diphenhydra mine 25 mg capsule 25 mg by oral route. 04/14 completed Not Available Not Available Not Available clotrimazol e-betametha sone 1 %-0.05 % topical cream apply to the affected and surroundi ng areas of skin TWICE DAILY in the morning and evening for 2 weeks. active Not Available Not Available No t Available halobetasol propionate 0.05 % topical ointment APPLY TO AFFECTED AREAS TWICE A DAY FOR 2 WEEKS. -OCCLUDE WITH SARAN WRAP AT NIGHT TIME APPLICATI ON. 08/24 completed Not Available Not Available Not Available hyoscyamine 0.[address] 1 tablet every 6 hours by sublingua l route as needed for 30 days. 2022 active Not Available Not Available Not Avai lable lidocaine 5 % topical patch 1 pat by topical route. 2021 active Not Available Not Available Not Avai lable fentanyl (PF) 50 mcg/mL injection solution 25 microgram s by injection route. 04/14 completed Not Available Not Available Not Available Mapap (acetaminop hen) 325 mg tablet 650 mg by oral route. 04/14 completed Not Available Not Available Not Available betamethaso ne dipropionat e 0.05 % topical cream APPLY A THIN LAYER TOPICALLY TO AFFECTED AREAS ONCE DAILY. active Not Available Not Available No t Available betamethaso ne, augmented 0.05 % topical ointment APPLY A THIN LAYER TO THE AFFECTED AREA DAILY FOR 7 DAYS 08/22 completed Not Available Not Available Not Available diltiazem CD 120 mg capsule,ext ended release 24 hr 240 mg by oral route. 04/11 completed Not Available Not Available Not Available hydroxyzine HCl 25 mg tablet TAKE 1 TABLET BY MOUTH 3 TIMES DAILY DIRECTED active Not Available Not Available No t Available furosemide 20 mg tablet 08/24 completed Not Available Not Available Not Available sodium chloride 0.9 % intravenous solution 1000 mL by intraven. route. 04/12 completed Not Available Not Available Not Available ergocalcife rol (vitamin D2) 1,250 mcg (50,000 unit) capsule TAKE 1 CAPSULE BY MOUTH EVERY WEEK active Not Available Not Available No t Available methylpredn isolone 4 mg tablets in a dose pack take DIRECTED on dose package with food active Not Available Not Available No t Available hydroxyzine HCl 10 mg tablet TAKE 1 TABLET BY MOUTH TWICE DAILY active Not Available Not Available No t Available cefdinir 300 mg capsule TAKE 1 CAPSULE BY ORAL ROUTE 2 TIMES PER DAY FOR 5 DAYS 08/24 completed Not Available Not Available Not Available atenolol 50 mg tablet 100 mg by oral route. active Not Available Not Available No t Available loratadine 10 mg tablet TAKE 1 TABLET BY MOUTH ONCE DAILY. active Not Available Not Available No t Available clindamycin 600 mg/50 mL in 5 % dextrose intravenous piggyback 600 mg by intraven. route. 04/13 completed Not Available Not Available Not Available hydroxyzine pamoate 25 mg capsule TAKE 1 CAPSULE BY MOUTH TWICE DAILY 08/24 completed Not Available Not Available Not Available enoxaparin 40 mg/0.4 mL subcutaneou s syringe 40 mg by sub-q route. 04/14 completed Not Available Not Available Not Available sodium chloride 0.9 % (flush) injection syringe 10 mL by injection route. 04/14 completed Not Available Not Available Not Available hydromorpho ne 1 mg/mL injection syringe 1 mg by injection route. 04/14 completed Not Available Not Available Not Available escitalopra m 10 mg tablet TAKE 1 TABLET BY MOUTH ONCE DAILY active Not Available Not Available No t Available escitalopra m 20 mg tablet 10 mg by oral route. 04/14 completed Not Available Not Available Not Available potassium chloride ER 10 mEq tablet,exte nded release(par t/cryst) 10 milliequi valents by oral route. 08/24 completed Not Available Not Available Not Available nitrofurant oin monohydrate /macrocryst als 100 mg capsule Take 1 capsule every 12 hours by oral route for 10 days. active Not Available Not Available No t Available Natural Fiber Laxative (aspartame) oral powder mix 1 teaspoon in 8 ounces of water and drink once daily active Not Available Not Available No t Available melatonin active Not Available Not Jennifer ilable Not Available quetiapine 50 mg tablet 50 mg by oral route. 04/11 completed Not Available Not Available Not Available ondansetron HCl (PF) 4 mg/2 mL injection solution 4 mg by injection route. 04/14 completed Not Available Not Available Not Available cholecalcif grisel (vitamin D3) 1,250 mcg (50,000 unit) capsule 1 capsule by oral route. 2021 active Not Available Not Available Not Avai lable FeroSul 325 mg (65 mg iron) tablet TAKE 1 TABLET BY MOUTH ONCE DAILY. active Not Available Not Available No t Available melatonin 5 mg tablet TAKE 2 TABLETS BY MOUTH ONCE DAILY AT BEDTIME for sleep active Not Available Not Available No t Available Multaq 400 mg tablet TAKE 1 TABLET BY MOUTH TWICE DAILY active Not Available Not Available No t Available Calmoseptin e 0.44 %-20.6 % topical ointment APPLY TO BUTTOCK/G ROIN AREA 4 TIMES DAILY NEEDED active Not Available Not Available No t Available Xarelto 20 mg tablet TAKE 1 TABLET BY MOUTH EVERY EVENING ONCE DAILY AT BEDTIME active Not Available Not Available No t Available morphine 10 mg/mL intravenous syringe 5 mg by intraven. route. 04/14 completed Not Available Not Available Not Available hydromorpho ne 1 mg/mL injection solution 0.5 mg by injection route. 04/14 completed Not Available Not Available Not Available Vitals Date Recorded Body height Body mass index (BMI) Body weight Body temperature Oxygen saturation Oxygen saturation in Arterial blood by Pulse oximetry Heart rate Systolic And Diastolic Provider Name and Address Organization Details Last Updated DateTime 4 162.56 cm 37.8 kg/m2 70482.3 2 g 97.9 [degF] 96 % 96 % 70 /min 120/64 mm[Hg] [facility] & [place] 4 10:10:03 Date Recorded Body weight Body mass index (BMI) Body height Body temperature Oxygen saturation Oxygen saturation in Arterial blood by Pulse oximetry Heart rate Systolic And Diastolic Provider Name and Address Organization Details Last Updated DateTime 3 67693.6 7 g 33.6 kg/m2 162.56 cm 96.7 [degF] 97 % 97 % 74 /min 120/78 mm[Hg] phuong maloney [facility] & [place] 3 08:13:37 Social History Question Answer Notes LastModified by Organizat ion Details LastModified Time Tobacco Smoking Status Former Smoker phuong mosleyland [facility], [facility] & [place] 09/19/2022 08:23:22 Do You Have An Advance Directive? Yes Information not available 01/04/2023 Are You Blind Or Do You Have Difficulty Seeing? Yes Information not available 01/04/2023 What Was The Date Of Your Most Recent Tobacco Screening? 09/17/2022 Information not available 01/04/2023 Are You Passively Exposed To Smoke? No Information not available 01/04/2023 How Much Tobacco Do You Smoke? No Information not available 01/04/2023 How Many Years Have You Smoked Tobacco? 60 Information not available 01/04/2023 Sex: Female Functional Status Question Answer Note LastModified by Organizat ion Details LastModified Time Do you use any illicit or recreational drugs? No [place] [id number] Information not available 09/19/2022 What is your level of alcohol consumption? None [email or web address] Information not available 09/19/2022 Do you or have you ever used smokeless tobacco? Never used smokeless tobacco Information not available 01/04/2023 What is your exercise level? None Information not available 01/04/2023 Mental Status None recorded. Family History Nothing Reported. Medical History Condition Response Vision or Eye Problems Y GI Problems Y Congestive Heart Failure (CHF) Y Eczema Y Back Problems Y Dementia Y Gynecological HistoryNo gynecological history recorded. Obstetrics History GPAL:G 0 P 0 0 0 0 Immunizations Vaccine Type Date Status Note Provider Nam e and Address Organization Details Recorded Time Influenza, split virus, quadrivalent, preservative 7 completed September [place], [place] - [facility] & [place] 08/23/2023 10:10:25 COVID-19, mRNA, LNP-S, PF, 100 mcg/0.5mL dose or 50 mcg/0.25mL dose 2 completed September [place], [place] - [facility] & [place] 08/23/2023 10:10:25 COVID-19, mRNA, LNP-S, PF, 100 mcg/0.5mL dose or 50 mcg/0.25mL dose 1 completed [place] [facility] & [place] 08/23/2023 10:10:25 COVID-19, mRNA, LNP-S, PF, 100 mcg/0.5mL dose or 50 mcg/0.25mL dose 1 completed September [place], [place] - [facility] & [place] 08/23/2023 10:10:25 COVID-19, mRNA, LNP-S, PF, 100 mcg/0.5mL dose or 50 mcg/0.25mL dose 2 completed September FEL[place]ITY Avend[place] - [facility] - [place] & [place] 08/23/2023 10:10:25 Pneumococcal conjugate PCV 13 7 completed September Eugenio vidal, [place] - [facility] - [place] & [place] 08/23/2023 10:10:25 Influenza, high-dose, trivalent, PF 8 completed September FEL[place]ITY [place] - [facility] - [place] & [place] 08/23/2023 10:10:25 Past Encounters Encounter ID Performer Location Encounter Start Date Encounter Closed Date Diagnosis/Indication Diagnosis SNOMED-CT Code Diagnosis ICD10 Code Diagnosis Note [id number] Jaqueline Beltran NP [facility] Family [facility] [address] [facility] [place] [phone] 09/19/2022 07:59:09 09/19/2022 09:09:36 Adult health examination 421200391 Z00.00 annual Medicare wellness exam today Check CBC and CMP urinalysis +blood Irritable bowel syndrome with diarrhea 272832321 K58.0 patient stable on Levsin Iron defic iency anemia 44103973 D50.9 check iron panel Screening for cardiovascular system disease 237681024 Z13.6 check lipid Fatigue 48921493 R53.83 check B12 and TSH Diabetes m ellitus screening 555135184 Z13.1 check screening A1c Blood in urine 14467143 R31.9 patient did have blood in her urine on the urinalysis Sent for culture to ensure no infection [id number] Jermaine Blanchard DO [facility] Family Medicine- Dept [address] [place] [address] [place] [id number] 08/23/2023 09:44:13 08/23/2023 11:04:30 Lichen planus 1340646 L43.9 Atopic neurodermatitis 934383680 L20.81 Fatigue 19835085 R53.83 Generalize d anxiety disorder 96903599 F41.1 stable Irritable bowel syndrome with diarrhea 912642578 K58.0 Health Concerns Section Related Observation LastModified by Organization Detai ls LastModified Time None Recorded Concern Status LastModified by Organization Details LastModified Time None Recorded Advance Directives Directive Y: Payers Insurance Date Sequence Insurance Name Policy Number Policy [place] Covered Member ID [place] Member ID Guarantor Name 11/14/2021 2 [employer] (MEDICARE SUPPLEMENT) Rheba Wilcoxson [id number] Rheba A Wilcoxson 11/14/2021 3 AARP Rheba Wilcoxson [id number] Rheba A Wilcoxson 11/14/2021 3 [facility] (MEDICARE SUPPLEMENT) Rheba Wilcoxson [id number] Rheba A Wilcoxson 12/22/2023 2 [employer] (MEDICARE SUPPLEMENT) Rheba A Wilcoxson [id number] Rheba A Wilcoxson 12/22/2023 [place] - [facility] (MEDICARE) Rheba A Wilcoxson [id number] Rheba A Wilcoxson 11/14/2021 1 [employer] (MEDICARE SUPPLEMENT) Rheba Wilcoxson [id number] Rheba A Wilcoxson 12/22/2023 1 [place] Rheba A Wilcoxson [id number] Rheba A Wilcoxson 11/14/2021 1 [employer] (MEDICARE REPLACEMENT/A DVANTAGE - PPO) [id number] Rheba Wilcoxson [id number] Rheba A Wilcoxson 10/17/2021 1 [place] Rheba A Wilcoxson [id number] Rheba A Wilcoxson 10/17/2021 2 [employer] (PPO) Rheba A Wilcoxson [id number] Rheba A Wilcoxson Notes Date Note Type Note Provider Name and Address Organization Details Recorded Time 09/19/2022 text/html HCM Female Cancer screeningColonoscopy : DeclinesMammogram: bilateral mastectomyPap: aged outLung cancer: not indicated LaboratoryLipids: due todayDiabetes: due todayTSH-due today ImmunizationsInfluen za: 2COVID x 4Pneumococcal: x1Tdap: unsureZoster: Other:DEXA: Declines Patient presents today in the clinic for her annual Medicare wellness exam. she is currently being treated for iron deficiency anemia, IBS, dementia, Hyperlipidemia and high blood pressure. Patient is brought in with her family member, Ene. Patient is a current resident at [facility]. Patient states she is doing good overall. She does have a good appetite. Patient is due for lab work today. She has been to the eye doctor this year. She recently had cataract surgery. Patient is a nonsmoker. Her blood pressure is well controlled. She has had a very rough last year due to a fall and hip fracture. Patient does seem to be doing well lately. She still has issues with sores on her arm. She picks at them and they scab badly and cause scarring. Patient has seen a preschool associate teacher in the past. Patient does have mild fatigue Jaqueline Beltran NP [address] [facility], [address], [place], [address], [facility] & [place] 10/01/2022 19:46:40 08/23/2023 text/html patient is a stephanie y pleasant 88-year-old white female with multiple chronic medical issues who comes in today due to scratching and causing excoriations on her arms. patient was diagnosed with lichen planus per biopsy in the past she does have some steroid creams however they are not helping. Patient's caregiver states that she is constantly picking and scratching at her arms unconsciously. Patient also needs some health maintenance labs. Jermaine Blanchard DO [address], [address], [place], [address], [facility] - NT [facility] & [place] 08/23/2023 14:46:19 OBGyn Episode No OBEpisode recorded.
--- OUTSIDE RECORDS SUMMARY | 2024-12-22 14:55 | XMS_ITS ---
Author Organization [facility] Care Team Providers Care Film Library Clerk Name Role Phone Yesenia Mast Unavailable Unavailable Irvin Spence Unavailable Unavailable Ez, Carmita Unavailable Unavailable Katharina Valdez Unavailable Unavailable Allergies and adverse reactions Code CodeSystem Substance Reaction Severity StartDate Concern Status 239321463 SNOMED CT Penicillins Unknown 03/12/2024 activ e Care Team Name Role Address Phone Organization Dates Irvin Spence PCP [facility] [address] [facility], [place], [address], [place] (Office): : [place] 03/12/2024 - present Yesenia Mast [address] [place] [address], [address], [place] (Office): : [place] 03/12/2024 - present Carmita [place], [facility] [place] 03/12/2024 - present Katharina Valdez [place], [facility] Carmen jefferson 03/12/2024 - present Imaging Narrative Note Date Imaging Narrative No te 12/17/2024 HIP UNI W OR W/O PEL VIS 1 VIEW, LEFTSee NoteFINDINGS: There is prosthetic left femoral head in proper alignment with respect to the acetabulum. There is no fracture or acute dislocation. The prosthesis is properly situated without any loosening. Pubic rami are normal.CONCLUSION: Intact left hip arthroplasty.ELECTRONICALLY SIGNED BY DA GARIBAY M.D. 12/17/2024 2:49:07 PM EDT.Reason for Study: M25.551 PAIN IN RIGHT HIPPrincipal Result Straightedge Machine Operator Helper: DA GARIBAY ([phone])Color Receiver: JENNI KAHN ([email or web address])Strategic Accounts Manager Color Receiver: NIK 12/17/2024 PELVIS 1 OR 2 VIEWSF INDINGS: Bony ossification pattern is low. Bilateral sacroiliac joints are intact. Pubic rami and both hip joints are without acute fracture or dislocation.CONCLUSION: No acute bony findings.ELECTRONICALLY SIGNED BY DA GARIBAY M.D. 12/17/2024 2:49:07 PM EDT.Reason for Study: M25.551 PAIN IN RIGHT HIPPrincipal Result Straightedge Machine Operator Helper: DA GARIBAY ([id number])Color Receiver: JENNI KAHN ([employer])Strategic Accounts Manager Color Receiver: NIK Goals Section Goals Description Status Target Date #2 Resident will remain free from complications related to eczema through next review Active 11/26/2025 Advanced Directives will be honored through next review Active 11/26/2025 Optimal cognition will be ma intained with no avoidable decline through next review Active 11/26/2025 Resident behaviors will not impede care delivery to have needs met through next review Active 11/26/2025 Resident will be able to com municate basic needs on a daily basis through the review date. Active 11/26/2025 Resident will be free from s igns and symptoms of abnormal bleeding through next review date. Active 11/26/2025 Resident will be offered alt ernate meal if she refuses meal through next review Active 11/26/2025 Resident will communicate an y complaints of discomfort and/or pain to staff through next review Active 11/26/2025 Resident will have decreased risk for falls through nursing interventions through next review Active 11/26/2025 Resident will have toileting needs met by staff through nursing interventions daily Active 11/26/2025 Resident's Skin will remain intact through the n ext review. Active 11/26/2025 The resident will (maintain/ improve) current ambulation status AEB: maintaining ability to ambulate up to 50 ft with min assist 6-7 days a week through next review Active 11/26/2025 The resident will (maintain/ improve) current transfer functional status AEB: resident transferring with minimal verbal cues 6-7 days a week through next review Active 11/26/2025 The resident will be free fr om complications related to infection through the review date. Active 11/26/2025 The resident will be free fr om s/sx of complications of cardiac problems through the review date. Active 11/26/2025 The resident will maintain h eart rate within acceptable limits as determined by MD/ pacemaker settings through review date. Active 11/26/2025 The resident will remain inocencio e of s/sx or complications related to anemia through review date. Active 11/26/2025 The resident will resume usu al activities without further incident through the review date. Active 11/26/2025 Will attend/participate in a ctivities of choice through next review Active 11/26/2025 Will benefit from medication without adverse effects through next review. Active 11/26/2025 Will express/exhibit satisfa ction with stay and care through next review Active 11/26/2025 Will have needs met by angie haney of staff as needed through next review Active 11/26/2025 Will maintain maximum functional mobility throug h next review Active 11/26/2025 Will not exhibit an avoidable decline in mood. A ctive 11/26/2025 Immunizations Immunization Status Vaccine Details Vaccine Code CodeSystem Date Notes Influenza cancelled Influenza, high-dose, split virus, quadrivalent, injectable, preservative free 197 CVX created date: 5 consent date: 4 Educated by on 06/06/2024 Influenza completed Influenza, high-dose, split virus, quadrivalent, injectable, preservative free 197 CVX created date: 4 administe red date: 7 TB 1 Step Mantoux (PPD) completed tuberculin skin test; unspecified formulation Given 0.1 ml Left Forearm subcutaneously 98 CVX created date: 4 consent date: 4 administe red date: 4 Pneumococcal PCV13 completed pneumococcal conjugate vaccine, 13 valent 133 CVX created date: 4 administe red date: 10/31/201 7 Pneumococcal Prevnar 20 completed Pneumococcal conjugate vaccine 20-valent (PCV20), polysaccharide [id number] conjugate, adjuvant, preservative free lotNumber: [id number] expiry: 11/01/2025 Mfg: Pzifer Given 0.5 216 CVX created date: 5 consent date: 5 administe red date: 5 Educated by on 09/01/2024 Resident states no concerns prior to or immediately after vaccination. Resident to be monitored 72 hrs post vaccine per nursing staff Pneumococcal Prevnar 20 cancelled Pneumococcal conjugate vaccine 20-valent (PCV20), polysaccharide [id number] conjugate, adjuvant, preservative free 216 CVX created date: 5 consent date: 4 Educated by on 06/06/2024 COVID-19 Vaccine Dose 1 completed unknown vaccine or immune globulin 999 CVX created date: 4 administe red date: 1 moderna COVID-19 Vaccine Dose 2 completed unknown vaccine or immune globulin 999 CVX created date: 4 administe red date: 1 COVID-19 Vaccine Additional Dose/Booster cancelled unknown vaccine or immune globulin 999 CVX created date: 5 consent date: 4 Educated by on 06/06/2024 COVID-19 Vaccine Additional Dose/Booster completed unknown vaccine or immune globulin 999 CVX created date: 4 administe red date: 2 COVID-19 Vaccine Additional Dose/Booster completed unknown vaccine or immune globulin 999 CVX created date: 4 administe red date: 2 influenza, trivalent, adjuvanted completed Influenza, adjuvanted, inactivated, trivalent, injectable, preservative free lotNumber: [id number] expiry: 12/01/2024 Mfg: FLUAD 168 CVX created date: 5 consent date: 5 administe red date: 5 Educated by on 07/14/2024 72 hr monitoring initiated Medications Section Medication Name Status Code CodeSystem Dose Route Frequency Admin Type Sig Text Start Date End Date dilTIAZem HCl ER Oral Capsule Extended Release 24 Hour 240 MG active 834057 RXNORM 1 capsul e Oral one time a day Routine Give 1 capsul e by mouth one time a day for HTN relate d to ESSENT IAL (PRIMA RY) HYPERT ENSION (I10) 2023 - Atenolol Oral Tablet 100 MG active 296798 RXNORM 1 tablet Oral one time a day Routine Give 1 tablet by mouth one time a day for HTN relate d to ESSENT IAL (PRIMA RY) HYPERT ENSION (I10) 2023 - Ergocalcifero l Oral Capsule 1.25 MG (89419 UT) active 468407 0 RXNORM 1 capsul e Oral one time a day Routine Give 1 capsul e by mouth one time a day every Sat for supple ment relate d to VITAMI N D DEFICI ENCY, UNSPEC IFIED (E55.9 ) 2023 - Simethicone Oral Capsule 180 MG active 896398 RXNORM 1 capsul e Oral one time a day Routine Give 1 capsul e by mouth one time a day for GAS 2023 - Xarelto Oral Tablet 10 MG active 051658 2 RXNORM 1 tablet Oral at bedtime Routine Give 1 tablet by mouth at bedtim e for afib relate d to UNSPEC IFIED ATRIAL FIBRIL LATION (I48.9 1) 2023 - Melatonin Oral Tablet 3 MG active 19901104 RXNORM 2 tablet Oral at bedtime Routine Give 2 tablet by mouth at bedtim e for insomn ia relate d to INSOMN IA, UNSPEC IFIED (G47.0 0) 2023 - Acetaminophen Tablet 500 MG active RXNORM 500 mg Oral as needed PRN Give 500 mg by mouth every 6 hours as needed for Pain or fever relate d to ACQUIR ED ABSENC E OF BILATE RAL BREAST S AND NIPPLE S (Z90.1 3);DEM ENTIA IN OTHER DISEAS ES CLASSI FIED ELSEWH ERE, UNSPEC IFIED SEVERI TY, WITH OTHER BEHAVI ORAL DISTUR BANCE (F02.8 18) Do NOT exceed 4 GM of Acetam inophe n in 24 hours 2023 - SEROquel Oral Tablet 25 MG active 918994 RXNORM 1 tablet Oral two times a day Routine Give 1 tablet by mouth two times a day relate d to DELIRI UM DUE TO KNOWN PHYSIO LOGICA L CONDIT ION (F05) AND Give 0.5 tablet by mouth one time a day relate d to DELIRI UM DUE TO KNOWN PHYSIO LOGICA L CONDIT ION (F05) 2024 - 933858 RXNORM 0.5 tablet Oral one time a day Routine Give 1 tablet by mouth two times a day relate d to DELIRI UM DUE TO KNOWN PHYSIO LOGICA L CONDIT ION (F05) AND Give 0.5 tablet by mouth one time a day relate d to DELIRI UM DUE TO KNOWN PHYSIO LOGICA L CONDIT ION (F05) 2024 - Vistaril Oral Capsule 25 MG active 728495 RXNORM 1 tablet Oral two times a day Routine Give 1 tablet by mouth two times a day for anxiet y 2024 - Gentle Iron Oral Capsule 28-60-0.008-0 .4 MG active 2 capsul e Oral one time a day Routine Give 2 capsul e by mouth one time a day for anemia 2024 - Betamethasone Dipropionate External Lotion 0.05 % active 602026 RXNORM n/a n/a Topical every shift Routine Apply to lesion s to body topica lly every shift for eczema 2024 - Aquaphor External Ointment active 800224 4 RXNORM n/a n/a Topical every mold shifter Routine Apply to lesion s to body topica lly every mold shifter for eczema 2024 - Crisaborole External Ointment 2 % aborted 502972 7 RXNORM n/a n/a Topical every mold shifter Routine Apply to lesion s on body topica lly every mold shifter for eczema 12/08 Crisaborole External Ointment 2 % active 532731 7 RXNORM n/a n/a Topical every mold shifter Routine Apply to open lesion s on body topica lly every mold shifter for eczema 2024 - Biofreeze External Cream 10 % active 20000606 3 RXNORM n/a n/a Topical as needed PRN Apply to LT hip topica lly every 6 hours as needed for pain for 14 Days 12/31 Biofreeze External Cream 10 % aborted 20000606 3 RXNORM n/a n/a Topical as needed PRN Apply to RT hip topica lly every 6 hours as needed for pain for 14 Days 12/17 Mental Status Section Date Assessment Total Score Description 12/11/2024 BIMS 03 severe cognitiv e impairment CAM 2 Delirium indica pam PHQ-9 03 minimal depress ion 09/12/2024 BIMS 04 severe cognitiv e impairment CAM 0 No delirium ind icated PHQ-9 00 Plan of Treatment Section Test Code Code System Name Date UA W/CULTURE IF INDICATED Problems Problem # Description Date of onset Resolved Date Code CodeSystem Concern Status 1 DELUSIONAL DISORDERS 12/03/[address] active 2 DIARRHEA, UNSPECIFIED 05/07/2024 06/05/[address] completed 3 COVID-19 04/30/2024 05/13/[address] compl eted 4 ACQUIRED ABSENCE OF BILATERAL BREASTS AND NIPPLES 03/12/[address] active 5 ALZHEIMER'S DISEASE, UNSPECIFIED 03/12/[address] active 6 COGNITIVE COMMUNICATION DEFICIT 03/12/2024 05/07/[address] completed 7 CONSTIPATION, UNSPECIFIED 03/12/[address] active 8 DELIRIUM DUE TO KNOWN PHYSIOLOGICAL CONDITION 03/12/[address] active 9 DEMENTIA IN OTHER DISEASES CLASSIFIED ELSEWHERE, UNSPECIFIED SEVERITY, WITH OTHER BEHAVIORAL DISTURBANCE 03/12/[address] active 10 DYSPHAGIA, OROPHARYNGEAL PHASE 03/12/2024 05/07/[address] complete d 11 ESSENTIAL (PRIMARY) HYPERTENSION 03/12/[address] active 12 GENERALIZED ANXIETY DISORDER 03/12/[address] active 13 INSOMNIA, UNSPECIFIED 03/12/[address] active 14 IRON DEFICIENCY 03/12/[address] ac tive 15 MIXED HYPERLIPIDEMIA 03/12/[address] active 16 MUSCLE WASTING AND ATROPHY, NOT ELSEWHERE CLASSIFIED, MULTIPLE SITES 03/12/2024 05/07/[address] completed 17 OTHER ABNORMALITIES OF GAIT AND MOBILITY 03/12/2024 05/07/[address] completed 18 OTHER SEASONAL ALLERGIC RHINITIS 03/12/[address] active 19 PRESENCE OF CARDIAC PACEMAKER 03/12/[address] active 20 UNSPECIFIED ATRIAL FIBRILLATION 03/12/[address] active 21 UNSTEADINESS ON FEET 03/12/2024 05/07/[address] completed 22 VITAMIN B12 DEFICIENCY ANEMIA, UNSPECIFIED 03/12/[address] active 23 VITAMIN D DEFICIENCY, UNSPECIFIED 03/12/[address] active Reason for Referral No Reasons for Referral Entered Diagnostic Results Result Code Code System Date Test Result Interpretation Reference Range Status Notes DS7471- 6 INC 12/22 UA W/CULTURE IF INDICATED Resulted Result for: OUMOU SIMMS ( 1935, F) 5778-6 [facility] 12/22 COLOR Value: PENDING Units: Normal Pending 16269-9 INC 12/22 CLARITY Value: PENDING Units: Normal Pending 2349-9 [facility] 12/22 GLUCOSE,UR Value: PENDING Units: Normal Pending 1977-8 INC 12/22 BILIRUBIN,U R Value: PENDING Units: Normal Pending 43401-0 [facility] 12/22 KETONES,UR Value: PENDING Units: Normal Pending 2965-2 [facility] 12/22 SPECIFIC GRAVITY Value: PENDING Units: Normal Pending 5794-3 INC 12/22 BLOOD,UR Value: PENDING Units: Normal Pending 2756-5 INC 12/22 PH, URINE Value: PENDING Units: Normal Pending 22971-0 LOINC 12/22 PROTEIN,UR Value: PENDING Units: Normal Pending 5818-0 LOINC 12/22 UROBILINOGE N,UR Value: PENDING Units: Normal Pending 5802-4 LOINC 12/22 NITRITE,UR Value: PENDING Units: Normal Pending 5799-2 INC 12/22 LEUKOCYTES, UR Value: PENDING Units: Normal Pending 25380-8 LOINC 12/22 RBC,UR Value: PENDING Units: Normal Pending 5821-4 LOINC 12/22 WBC,UR Value: PENDING Units: Normal Pending 22548-4 INC 12/22 EPITHELIAL CELL Value: PENDING Units: Normal Pending 06803-4 INC 12/22 BACTERIA,UR Value: PENDING Units: Normal Pending 28138-2 INC 12/22 HYALINE CASTS Value: PENDING Units: Normal Pending 123-999 99-9 INC 12/22 REMARKS Value: PENDING Units: Normal Pending 5774-5 INC 12/22 CALCIUM OXALATE CRYSTAL Value: PENDING Units: Normal Pending 5814-9 INC 12/22 TRIPLE PHOSPHATE CRYSTAL Value: PENDING Units: Normal Pending 5817-2 INC 12/22 URIC ACID CRYSTALS Value: PENDING Units: Normal Pending 8246-1 INC 12/22 AMORPHOUS Value: PENDING Units: Normal Pending 8247-9 INC 12/22 MUCOUS Value: PENDING Units: Normal Pending 5793-5 INC 12/22 GRANULAR CASTS Value: PENDING Units: Normal Pending 14743-3 INC 12/22 BUDDING YEAST Value: PENDING Units: Normal Pending 8248-7 INC 12/22 SPERMATOZOA Value: PENDING Units: Normal Pending 123-999 99-9 [facility] 12/22 TRICHOMONAS Value: PENDING Units: Normal Pending 123-999 99-9 INC 12/22 TRANS EPITHELIAL CELLS Value: PENDING Units: Normal Pending 69196-9 INC 12/22 RENAL EPITHELIAL CELLS Value: PENDING Units: Normal Pending 5807-3 INC 12/22 RBC CASTS Value: PENDING Units: Normal Pending 5820-6 INC 12/22 WBC CASTS Value: PENDING Units: Normal Pending 96744-5 INC 12/22 BROAD CASTS Value: PENDING Units: Normal Pending 5819-8 INC 12/22 WAXY CASTS Value: PENDING Units: Normal Pending 123-999 99-9 [facility] 12/22 AMORPHOUS PHOS CRYSTALS Value: PENDING Units: Normal Pending 08862-3 [facility] 12/22 AMORPHOUS URATE CRYSTALS Value: PENDING Units: Normal Pending 5766-1 [facility] 12/22 AMMONIUM BIURATE CRYSTALS Value: PENDING Units: Normal Pending 123-999 99-9 [facility] 12/22 AMPICILLIN CRYSTALS Value: PENDING Units: Normal Pending 5771-1 [facility] 12/22 BILIRUBIN CRYSTALS Value: PENDING Units: Normal Pending 5777-8 [facility] 12/22 CHOLESTEROL CRYSTALS Value: PENDING Units: Normal Pending 5775-2 [facility] 12/22 CALCIUM PHOS CRYSTALS Value: PENDING Units: Normal Pending 5784-4 [facility] 12/22 CYSTINE CRYSTALS Value: PENDING Units: Normal Pending 5798-4 [facility] 12/22 LEUCINE CRYSTALS Value: PENDING Units: Normal Pending 5812-3 [facility] 12/22 SULFONAMIDE CRYSTALS Value: PENDING Units: Normal Pending 5815-6 [facility] 12/22 TYROSINE CRYSTALS Value: PENDING Units: Normal Pending 5809-9 [facility] 12/22 REDUCING SUBSTANCE Value: PENDING Units: Normal Pending 61499-7 [facility] 12/22 WBC CLUMPS Value: PENDING Units: Normal Pending 123-999 99-9 [facility] 12/22 YEAST W/PSEUDOHYP HAE Value: PENDING Units: Normal Pending 123-999 99-9 [facility] 12/22 CALCIUM CARBONATE CRYSTALS Value: PENDING Units: Normal Pending 123-999 99-9 [facility] 12/22 UA TO CX TRIGGER Value: PENDING Units: Normal Pending 27157-6 [facility] 12/17 HIP UNI W OR W/O PELVIS 1 VIEW / PELVIS 1 OR 2 VIEWS Completed Result for: ATIYASTEPHOUMOU ( 1935, F) 98735-6 [facility] 12/17 HIP UNI W OR W/O PELVIS 1 VIEW Final HIP UNI W OR W/O PELVIS 1 VIEW, LEFTSee NoteFINDINGS : There is prosthetic left femoral head in proper alignment with respect to the acetabulum. There is no fracture or acute dislocation. The prosthesis is properly situated without any loosening. Pubic rami are normal.CONCL USION: Intact left hip arthroplasty .ELECTRONICA LLY SIGNED BY DA GARIBAY M.D. 12/17/2024 2:49:07 PM EDT.Reason for Study: M25.551 PAIN IN RIGHT HIPPrincipal Result Straightedge Machine Operator Helper: DA GARIBAY ([phone]) Color Receiver: JENNI KAHN (SAMUEL)Maxine scription Color Receiver: NIK 74717-8 [facility] PELVIS 1 OR 2 VIEWS Final PELVIS 1 OR 2 VIEWSFINDING S: Bony ossification pattern is low. Bilateral sacroiliac joints are intact. Pubic rami and both hip joints are without acute fracture or dislocation. CONCLUSION: No acute bony findings.MIGUEL CTRONICALLY SIGNED BY DA GARIBAY M.D. 12/17/2024 2:49:07 PM EDT.Reason for Study: M25.551 PAIN IN RIGHT HIPPrincipal Result Straightedge Machine Operator Helper: DA GARIBAY ([id number]) Color Receiver: JENNI KAHN (SAMUEL)Goodman scription Color Receiver: NIK Test Code Code System Name Date UA W/CULTURE IF INDICATED 12/17/2024 Social History Social History Observation Description Start Date End Date Code Code System Current Smoking Status Tobacco smoking consumption unknown 577535350 SNOMED CT Sex Assigned At Female 1935 35063-1 [facility] Gender Identity Female [id number] [facility] Vital Signs Code Code System Vitals Name Values and Units Timing Information 81966-6 LOINC Pain Level Value=7.0 12/22/2024 9279-1 LOINC Respiratory Rate Value=20.0 Units=/m in 12/18/2024 8462-4 LOINC Blood Pressure-Diastolic Value=64 Un its=mmHg 12/18/2024 8480-6 LOINC Blood Pressure-Systolic Snsuj=296 Un its=mmHg 12/18/2024 8310-5 LOINC Body Temperature Value=98.1 Units= F 12/18/2024 8867-4 LOINC Heart rate Value=74.0 Units=/min 29326-9 LOINC Weight Dzlor=098.6 Units=Lbs 11/2024 42840-3 LOINC O2 % BldC Oximetry Value=93.0 Units= % 12/05/2024 8302-2 LOINC Height Value=64.0 Units=Inches 03/12/2024
--- NOTE | 2024-12-22 14:58 | XR_ITS ---
PROCEDURE INFORMATION: Exam: XR Left Femur Exam date and time: 12/22/2024 4:21 PM Age: 89 years old Clinical indication: Pain; Hip; Left TECHNIQUE: Imaging protocol: Radiologic exam of the left femur. Views: 2 views. COMPARISON: No relevant prior studies available. FINDINGS: Bones/joints: The patient is diffusely osteopenic. Status post left hip arthroplasty. No evidence of fracture or loosening. 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 Soft tissues: Unremarkable. IMPRESSION: The patient is diffusely osteopenic. Status post left hip arthroplasty. No evidence of fracture or loosening. 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
--- NOTE | 2024-12-22 14:59 | HMH.EDGENADL ---
Discharge Plan Disposition Patient Disposition: Home, Self-Care Condition: Good Referrals Follow up/Referrals: Provider,Referral, MD [Primary Care Provider, Medical] - See instructions Activity Restrictions/Add. Instructions Additional Instructions/Restrictions: Patient's kidney function was elevated here in the ED please have her follow-up on this outpatient. Otherwise imaging on her hip including the CT scan and the femur films were negative. Clinical Impressions Clinical Impression: Chronic hip pain Instructions Patient Instructions: Help for Hip Pain Print Language Print Language: Latvian Discharge ED Provider: Hermann Hunter General Adult HPI <Carla Fitch (ED), [employer] - Last Filed: 12/22/24 17:43> General Chief complaint: Recheck/Abnormal Lab/Rx Stated complaint: AMS Time Seen by Provider: 12/22/24 14:46 Mode of Arrival: EMS Source of Information: EMS Description of Symptoms (Recalled from ER Triage Doc. by RN): Pt in by EMS from [facility] due to complaints of left hip pain. Pt has had recent X-Ray for same issue which came back negative. History of Present Illness HPI narrative: 89-year-old female presents via EMS from [facility] for complaint of left hip pain. Patient had an x-ray at the half-way that was negative but patient still complaining of left hip and upper leg pain. Patient at baseline is confused. Patient does tell me that she is at [place]. She does know her name. Patient's vitals are stable upon arrival to the ED. Patient denies falling. Patient denies any other pain at this time. Related Data Allergies Allergy/AdvReac Type Severity Reaction Status Date / Time PCN (PENICILLIN) Allergy Unknown HIVES/LIPS Uncoded 05/22/17 15:12 SWELL PFSH <Carla Fitch (ED), [employer] - Last Filed: 12/22/24 17:43> [facility] Disclaimer: The information contained in this section may have been updated after the patient was seen, as this information can be updated by other users. Social History (Updated 12/22/24 @ 17:43 by Carla Fitch (ED), [employer]) Smoking Status: Smoker, status unknown alcohol intake: former current occupational status: other Travel in the last 8 weeks?: None <Carla Fitch (ED), [employer] - Last Filed: 12/22/24 17:43> ROS Obtained: Yes Systems reviewed as appropriate & no additional complaints except as documented Constitutional Constitutional: Reports as per HPI Physical Exam <Carla Fitch (ED), [employer] - Last Filed: 12/22/24 17:43> General General appearance: alert and in distress (Complaint of pain in left hip and leg) Head Head exam: atraumatic and normocephalic Eye Eye exam: Present normal appearance, PERRL and EOMI ENT ENT exam: Present normal oropharynx and mucous membranes moist Neck Neck exam: Present normal inspection, full ROM and trachea midline Respiratory Respiratory exam: Present normal lung sounds bilaterally Cardiovascular Cardiovascular exam: Present regular rate, normal rhythm, normal heart sounds, +S1 and +S2 Abdominal Exam Abdominal exam: Present soft and normal bowel sounds Extremities Exam Extremities exam: Present tenderness (Left hip) and normal capillary refill Neurological Exam Neurological exam: Present alert Skin Skin exam: Present warm, dry and intact Medical Decision Making <Carla Fitch (ED), [employer] - Last Filed: 12/22/24 17:43> Medical Records Screening: Per USPSTF and CDC recommendations, given the prevalence of disease in our region, it is our hospital?s policy to screen for HIV and viral Hepatitis for all patients aged 18 and over and those with ongoing risk factors. Shilo Inquiry Pt receiving controlled substance: No Shilo was queried for this patient: No Vital Signs: 12/22/24 14:48 12/22/24 15:01 12/22/24 15:31 Temperature 98.3 F Temperature Source Oral Pulse Rate 70 66 Pulse Rate [Left] 71 Respiratory Rate 16 18 18 Blood Pressure 132/93 H 144/95 H Blood Pressure [Right Arm] 153/71 H Blood Pressure Mean 103 111 Blood Pressure Mean [Right Arm] 98 Blood Pressure Source Blood Pressure Source [Right Arm] Automatic Cuff Blood Pressure Position 02 Sat by Pulse Oximetry 98 96 97 Oxygen Delivery Method Room Air 12/22/24 16:05 12/22/24 18:01 Temperature 98.3 F Temperature Source Oral Pulse Rate 69 63 Pulse Rate [Left] Respiratory Rate 14 Blood Pressure 106/45 L 112/58 L Blood Pressure [Right Arm] Blood Pressure Mean 78 Blood Pressure Mean [Right Arm] Blood Pressure Source Automatic Cuff Blood Pressure Source [Right Arm] Blood Pressure Position Supine 02 Sat by Pulse Oximetry 97 Oxygen Delivery Method Room Air Lab Data Lab Results 12/22/24 15:32: WBC 6.6, RBC 3.86 L, Hgb 12.0 L, Hct 36.5 L, MCV 94.6, MCH 31.1, MCHC 32.9, RDW 13.7, Plt Count 274, MPV 10.8 H, Neut % (Auto) 64.3, Lymph % (Auto) 15.6, Garrett % (Auto) 13.9 H, Eos % (Auto) 4.1, Baso % (Auto) 0.9, Neut # (Auto) 4.3, Lymph # (Auto) 1.0, Garrett # (Auto) 0.9, Eos # (Auto) 0.3, Baso # (Auto) 0.1, Sodium 135 L, Potassium 4.5, Chloride 100, Carbon Dioxide 29, Anion Gap 10.5, BUN 71 H, Creatinine 1.60 H, Estimated Creat Clear 34, Estimated GFR 30 L, Est GFR ( Amer) 37 L, Glucose 102 H, Calcium 9.0, Magnesium 2.6 H, Total Bilirubin 0.9, AST 48 H, ALT 30, Alkaline Phosphatase 115, Total Protein 7.6, Albumin 4.1, Globulin 3.5 H, Albumin/Globulin Ratio 1.2 12/22/24 15:32 12/22/24 15:32 Orders (Tests/Meds): ED MEDICATIONS Discontinued Medications Generic Name Dose Route Start Last Admin Trade Name Freq PRN Reason Stop Dose Admin Acetaminophen 1,000 mg 12/22/24 14:55 12/22/24 15:34 Acetaminophen 1,000mg/100ml Vial IV 12/22/24 14:56 1,000 mg ONCE ONE Administration Ketorolac Tromethamine 30 mg 12/22/24 14:55 12/22/24 15:34 Ketorolac 30mg/Ml Vial IV 12/22/24 14:56 30 mg ONCE ONE Administration ORDERS Category Date Time Status CT bony pelvis Stat Cat Scan 12/22/24 14:53 Completed Femur XR left 2 views [XR femur LT 2V] Stat Exams 12/22/24 14:58 Completed CBC [Complete Blood Count Auto Diff] Stat Lab 12/22/24 15:32 Completed Comprehensive Metabolic Panel Stat Lab 12/22/24 15:32 Completed Magnesium Stat Lab 12/22/24 15:32 Completed Medical Decision Narrative: patient is a 89-year-old female presenting to the emergency department for evaluation of left hip and left femur pain. Patient is hemodynamically stable and nontoxic-appearing upon arrival, afebrile. Differential diagnosis includes femur fracture, hip fracture versus sprain strain of hip or femur. Workup will be conducted with hematologic labs, specific imaging. Initial inventions include Toradol and Tylenol for pain. Patient is from [facility]. Initial workup reviewed by me [hematologic labs are remarkable for elevated BUN at 71. This is elevated but this is thought to be chronic because this is over 7 years ago since it has been checked here in our facility. Patient is here for left hip pain and no other complaints at this time. will have facility monitor this. Imaging informally interpreted by me and remarkable for nothing acute. Please see radiology report for formal read. Discussed with patient although baseline is confused that her hip imaging is normal. Patient will be sent back to her half-way and [facility]. Patient stable for discharge back to home. <Hermann Hunter MD - Last Filed: 12/22/24 17:45> Vital Signs: 12/22/24 14:48 12/22/24 15:01 12/22/24 15:31 Temperature 98.3 F Temperature Source Oral Pulse Rate 70 66 Pulse Rate [Left] 71 Respiratory Rate 16 18 18 Blood Pressure 132/93 H 144/95 H Blood Pressure [Right Arm] 153/71 H Blood Pressure Mean 103 111 Blood Pressure Mean [Right Arm] 98 Blood Pressure Source Blood Pressure Source [Right Arm] Automatic Cuff Blood Pressure Position 02 Sat by Pulse Oximetry 98 96 97 Oxygen Delivery Method Room Air 12/22/24 16:05 12/22/24 18:01 Temperature 98.3 F Temperature Source Oral Pulse Rate 69 63 Pulse Rate [Left] Respiratory Rate 14 Blood Pressure 106/45 L 112/58 L Blood Pressure [Right Arm] Blood Pressure Mean 78 Blood Pressure Mean [Right Arm] Blood Pressure Source Automatic Cuff Blood Pressure Source [Right Arm] Blood Pressure Position Supine 02 Sat by Pulse Oximetry 97 Oxygen Delivery Method Room Air Lab Data Lab Results 12/22/24 15:32: WBC 6.6, RBC 3.86 L, Hgb 12.0 L, Hct 36.5 L, MCV 94.6, MCH 31.1, MCHC 32.9, RDW 13.7, Plt Count 274, MPV 10.8 H, Neut % (Auto) 64.3, Lymph % (Auto) 15.6, Garrett % (Auto) 13.9 H, Eos % (Auto) 4.1, Baso % (Auto) 0.9, Neut # (Auto) 4.3, Lymph # (Auto) 1.0, Garrett # (Auto) 0.9, Eos # (Auto) 0.3, Baso # (Auto) 0.1, Sodium 135 L, Potassium 4.5, Chloride 100, Carbon Dioxide 29, Anion Gap 10.5, BUN 71 H, Creatinine 1.60 H, Estimated Creat Clear 34, Estimated GFR 30 L, Est GFR ( Amer) 37 L, Glucose 102 H, Calcium 9.0, Magnesium 2.6 H, Total Bilirubin 0.9, AST 48 H, ALT 30, Alkaline Phosphatase 115, Total Protein 7.6, Albumin 4.1, Globulin 3.5 H, Albumin/Globulin Ratio 1.2 Orders (Tests/Meds): ED MEDICATIONS Discontinued Medications Generic Name Dose Route Start Last Admin Trade Name Freq PRN Reason Stop Dose Admin Acetaminophen 1,000 mg 12/22/24 14:55 12/22/24 15:34 Acetaminophen 1,000mg/100ml Vial IV 12/22/24 14:56 1,000 mg ONCE ONE Administration Ketorolac Tromethamine 30 mg 12/22/24 14:55 12/22/24 15:34 Ketorolac 30mg/Ml Vial IV 12/22/24 14:56 30 mg ONCE ONE Administration ORDERS Category Date Time Status CT bony pelvis Stat Cat Scan 12/22/24 14:53 Completed Femur XR left 2 views [XR femur LT 2V] Stat Exams 12/22/24 14:58 Completed CBC [Complete Blood Count Auto Diff] Stat Lab 12/22/24 15:32 Completed Comprehensive Metabolic Panel Stat Lab 12/22/24 15:32 Completed Magnesium Stat Lab 12/22/24 15:32 Completed Medical Decision Narrative: patient is a 89-year-old female presenting to the emergency department for evaluation of left hip and left femur pain. Patient is hemodynamically stable and nontoxic-appearing upon arrival, afebrile. Differential diagnosis includes femur fracture, hip fracture versus sprain strain of hip or femur. Workup will be conducted with hematologic labs, specific imaging. Initial inventions include Toradol and Tylenol for pain. Patient is from [facility]. Initial workup reviewed by me [hematologic labs are remarkable for elevated BUN at 71. This is elevated but this is thought to be chronic because this is over 7 years ago since it has been checked here in our facility. Patient is here for left hip pain and no other complaints at this time. will have facility monitor this. Imaging informally interpreted by me and remarkable for nothing acute. Please see radiology report for formal read. Discussed with patient although baseline is confused that her hip imaging is normal. Patient will be sent back to her half-way and [facility]. Patient stable for discharge back to home. I was consulted by the MAE, and we discussed the complexity of the problems being addressed. I approved the treatment and management plan for this patient's care in the emergency department, thus performing a substantive portion of the medical decision making. Although patient has pain she has full passive range of motion of her hip evaluated by Dr. Constantino I have no concern for septic arthritis at this time CT imaging is nonactionable. Hermann Hunter MD <Hal Constantino MD - Last Filed: 12/22/24 19:51> Vital Signs: 12/22/24 14:48 12/22/24 15:01 12/22/24 15:31 Temperature 98.3 F Temperature Source Oral Pulse Rate 70 66 Pulse Rate [Left] 71 Respiratory Rate 16 18 18 Blood Pressure 132/93 H 144/95 H Blood Pressure [Right Arm] 153/71 H Blood Pressure Mean 103 111 Blood Pressure Mean [Right Arm] 98 Blood Pressure Source Blood Pressure Source [Right Arm] Automatic Cuff Blood Pressure Position 02 Sat by Pulse Oximetry 98 96 97 Oxygen Delivery Method Room Air 12/22/24 16:05 12/22/24 18:01 Temperature 98.3 F Temperature Source Oral Pulse Rate 69 63 Pulse Rate [Left] Respiratory Rate 14 Blood Pressure 106/45 L 112/58 L Blood Pressure [Right Arm] Blood Pressure Mean 78 Blood Pressure Mean [Right Arm] Blood Pressure Source Automatic Cuff Blood Pressure Source [Right Arm] Blood Pressure Position Supine 02 Sat by Pulse Oximetry 97 Oxygen Delivery Method Room Air Lab Data Lab Results 12/22/24 15:32: WBC 6.6, RBC 3.86 L, Hgb 12.0 L, Hct 36.5 L, MCV 94.6, MCH 31.1, MCHC 32.9, RDW 13.7, Plt Count 274, MPV 10.8 H, Neut % (Auto) 64.3, Lymph % (Auto) 15.6, Garrett % (Auto) 13.9 H, Eos % (Auto) 4.1, Baso % (Auto) 0.9, Neut # (Auto) 4.3, Lymph # (Auto) 1.0, Garrett # (Auto) 0.9, Eos # (Auto) 0.3, Baso # (Auto) 0.1, Sodium 135 L, Potassium 4.5, Chloride 100, Carbon Dioxide 29, Anion Gap 10.5, BUN 71 H, Creatinine 1.60 H, Estimated Creat Clear 34, Estimated GFR 30 L, Est GFR ( Amer) 37 L, Glucose 102 H, Calcium 9.0, Magnesium 2.6 H, Total Bilirubin 0.9, AST 48 H, ALT 30, Alkaline Phosphatase 115, Total Protein 7.6, Albumin 4.1, Globulin 3.5 H, Albumin/Globulin Ratio 1.2 Orders (Tests/Meds): ED MEDICATIONS Discontinued Medications Generic Name Dose Route Start Last Admin Trade Name Freq PRN Reason Stop Dose Admin Acetaminophen 1,000 mg 12/22/24 14:55 12/22/24 15:34 Acetaminophen 1,000mg/100ml Vial IV 12/22/24 14:56 1,000 mg ONCE ONE Administration Ketorolac Tromethamine 30 mg 12/22/24 14:55 12/22/24 15:34 Ketorolac 30mg/Ml Vial IV 12/22/24 14:56 30 mg ONCE ONE Administration ORDERS Category Date Time Status CT bony pelvis Stat Cat Scan 12/22/24 14:53 Completed Femur XR left 2 views [XR femur LT 2V] Stat Exams 12/22/24 14:58 Completed CBC [Complete Blood Count Auto Diff] Stat Lab 12/22/24 15:32 Completed Comprehensive Metabolic Panel Stat Lab 12/22/24 15:32 Completed Magnesium Stat Lab 12/22/24 15:32 Completed Medical Decision Narrative: patient is a 89-year-old female presenting to the emergency department for evaluation of left hip and left femur pain. Patient is hemodynamically stable and nontoxic-appearing upon arrival, afebrile. Differential diagnosis includes femur fracture, hip fracture versus sprain strain of hip or femur. Workup will be conducted with hematologic labs, specific imaging. Initial inventions include Toradol and Tylenol for pain. Patient is from [facility]. I was consulted by the MAE, and we discussed the complexity of the problems being addressed. I approve the treatment and management plan for this patient's care in the emergency department, thus performing a substantive portion of the medical decision making. At this time, patient's imaging studies and laboratory studies are pending. Patient's care was transferred to the oncoming physician, Dr. Hunter, for further management. Hal Constantino MD Initial workup reviewed by me [hematologic labs are remarkable for elevated BUN at 71. This is elevated but this is thought to be chronic because this is over 7 years ago since it has been checked here in our facility. Patient is here for left hip pain and no other complaints at this time. will have facility monitor this. Imaging informally interpreted by me and remarkable for nothing acute. Please see radiology report for formal read. Discussed with patient although baseline is confused that her hip imaging is normal. Patient will be sent back to her half-way and [facility]. Patient stable for discharge back to home. I was consulted by the MAE, and we discussed the complexity of the problems being addressed. I approved the treatment and management plan for this patient's care in the emergency department, thus performing a substantive portion of the medical decision making. Although patient has pain she has full passive range of motion of her hip evaluated by Dr. Constantino I have no concern for septic arthritis at this time CT imaging is nonactionable. Hermann Hunter MD Critical Care <Carla Fitch (ED), DIRECT[employer] - Last Filed: 12/22/24 17:43> Critical Care Time Critical Care Time: No
[2024-12-22 15:01] VITALS: BP 132/93; PULSE 70; RESP 18; O2SAT 96
[2024-12-22 15:31] VITALS: BP 144/95; PULSE 66; RESP 18; O2SAT 97
[2024-12-22] MEDS: ACETAMINOPHEN 1,000MG/100ML VIAL 1000 MG IV (15:34)
[2024-12-22] MEDS: KETOROLAC 30MG/ML VIAL 30 MG IV (15:34)
[2024-12-22 15:56] LABS: Hematocrit 36.5 % (37.0-47.0); Hemoglobin 12.0 g/dL (12.2-16.2); Immature Granulocytes % 1.2 %; Mean Corpuscular HGB Conc 32.9 g/dL (31.8-35.4); Mean Corpuscular Hemoglobin 31.1 pg (27.0-31.2); Mean Corpuscular Volume 94.6 fl (81-99); Nucleated Red Blood Cells % 0 %; Platelet Count 274 K/mm3 (142-424); Red Blood Count 3.86 M/mm3 (4.20-5.40); Red Cell Distribution Width-SD 46.8 fL; White Blood Count 6.6 K/mm3 (4.8-10.8)
[2024-12-22 16:05] VITALS: BP 106/45; PULSE 69; O2SAT 97
[2024-12-22 16:10] LABS: Albumin Level 4.1 g/dl (3.5-5.0); Chloride 100 mmol/L (98-107); Potassium 4.5 mmoL/L (3.5-5.1); Sodium 135 mmol/L (136-145)
[2024-12-22 16:13] LABS: Alanine Aminotransferase 30 U/L (12-78); Albumin/Globulin Ratio 1.2 (1.1-1.8); Alkaline Phosphatase 115 U/L (38-126); Anion Gap 10.5 mEq/L (5-15); Aspartate Amino Transferase 48 U/L (14-36); Bilirubin,Total 0.9 mg/dl (0.2-1.3); Blood Urea Nitrogen 71 mg/dl (7-17); Calcium 9.0 mg/dl (8.4-10.2); Carbon Dioxide 29 mmol/L (22.0-30.0); Creatinine Clearance Estimated 34 mL/min (50-200); Creatinine,Serum 1.60 mg/dl (0.52-1.04); Estimated Glomerular Filt Rate 30 ml/min (>60); GFR (African American) 37 ML/MIN (>60); Globulin 3.5 g/dL (1.3-3.2); Glucose 102 mg/dl (74-100); Total Protein,Serum 7.6 g/dl (6.3-8.2)
[2024-12-22 16:14] LABS: Magnesium 2.6 mg/dl (1.6-2.3)
--- NOTE | 2024-12-22 16:28 | PC.NURSE ---
pt to ct
--- NOTE | 2024-12-22 17:44 | PC.NURSE ---
REPORT CALLED [facility] AT [facility]
--- NOTE | 2024-12-22 17:46 | PC.NURSE ---
[facility] NOTIFIED OF TRANSFER
[2024-12-22 18:01] VITALS: BP 112/58; PULSE 63; RESP 14; TEMP 36.8; O2SAT 97
== END 2024-12-22 18:02 | disposition home or self-care (01) ==
PROVIDERS: Nurse Practitioner; Emergency Provider Emergency Medicine
DX: M25.559 Pain in unspecified hip (principal)
CPT/HCPCS: 72192; 73552; 80053; 83735; 85025; 96365; 96366; 99284; J0131; J1885

== ENCOUNTER 2025-02-13 08:10 | Outpatient (CLI) | payer MEDICARE, MEDICAID, SELFPAY ==
--- OUTSIDE RECORDS SUMMARY | 2025-01-06 08:40 | XMS_ITS | Continuity of Care Document ---
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 Name Role Phone Karolyn Flores NP Unavailable Katie vailable Allergies, Adverse Reactions, Alerts Substance Reaction Status Criticality Penicillins Active No Information Medications Medication Instructions Dosage Effective Dates (start - stop) Status Comments Eucrisa 2 % topical ointment - Active hydroxyzine pamoate 25 mg capsule - Active Xarelto 10 mg tablet - Activ e melatonin 3 mg tablet - Acti ve acetaminophen 500 mg tablet - Active colestipol 1 gram tablet - Active Vitamin D2 1,250 mcg (50,000 unit) capsule - Active quetiapine 25 mg tablet - Ac tive Dupixent 300 mg/2 mL subcutaneous syringe - Active betamethasone dipropionate 0.05 % lotion - Active doxepin 10 mg capsule - Acti ve cyanocobalamin (vit B-12) 1,000 mcg tablet - Active Gas Relief (simethicone) 180 mg capsule - Active simvastatin 10 mg tablet - Active betamethasone dipropionate 0.05 % topical cream - Active Multaq 400 mg tablet - Activ e bisacodyl 10 mg rectal suppository - Active nicotine 7 mg/24 hr daily transdermal patch - Active quetiapine 50 mg tablet - Ac tive prednisone 20 mg tablet - Ac tive prednisone 10 mg tablet - Ac tive ipratropium 0.5 mg-albuterol 3 mg (2.5 mg base)/3 mL nebulization soln - Active Lagevrio 200 mg capsule (EUA) - Active nitrofurantoin monohydrate/macrocrysta ls 100 mg capsule - Active fosfomycin tromethamine 3 gram oral packet - Active loperamide 2 mg tablet - Act devon prednisone 50 mg tablet - Ac tive albuterol sulfate 1.25 mg/3 mL solution for nebulization - Active Xarelto 20 mg tablet - Activ e levofloxacin 250 mg tablet - Active levofloxacin 500 mg tablet - Active triamcinolone acetonide 0.5 % topical cream - Active Calmoseptine 0.44 %-20.6 % topical ointment APPLY TO BUTTOCK/GROIN AREA 4 TIMES DAILY NEEDED - Active Natural Fiber Laxative (aspartame) oral powder mix 1 teaspoon in 8 ounces of water and drink once daily - Active ergocalciferol (vitamin D2) 1,250 mcg (50,000 unit) capsule TAKE 1 CAPSULE BY MOUTH EVERY WEEK - Active melatonin 5 mg tablet TAKE 2 TABLETS BY MOUTH ONCE DAILY AT BEDTIME for sleep - Active aspirin 81 mg tablet,delayed release TAKE 1 TABLET BY MOUTH EVERY DAY - Active betamethasone, augmented 0.05 % topical ointment APPLY A THIN LAYER TO THE AFFECTED AREA EVERY DAY FOR 7 DAYS - Active hydroxyzine HCl 10 mg tablet TAKE 1 TABLET TWICE DAILY - Active loratadine 10 mg tablet TAKE 1 TABLET EV SAUL DAY -2023 - Active donepezil 5 mg tablet - Acti ve amlodipine 10 mg tablet - Ac tive escitalopram 10 mg tablet - Active diltiazem CD 240 mg capsule,extended release 24 hr - Active atenolol 50 mg tablet - Acti ve FeroSul 325 mg (65 mg iron) tablet - Active atenolol 100 mg tablet - Act devon furosemide 20 mg tablet - Ac tive hydrocodone 7.5 mg-acetaminophen 325 mg tablet - Active erythromycin 5 mg/gram (0.5 %) eye ointment - Active Problems Condition Type Effective Dates (start - stop) Clini sammie Status Comments No Known Problems Procedures Procedure Date SBS NF CARE SF MDM 10 SPECIAL SERVICE/PROC/REPORT DEBRIDE NAIL 6 OR MORE DEBRIDE NAIL 6 OR MORE HOME/RES VST EST LOW MDM 30 DEBRIDE NAIL 6 OR MORE DEBRIDE NAIL 6 OR MORE DEBRIDE NAIL 6 OR MORE Advance Directives Directive Yes / No Effective Date File Name No Information Encounters Encounter Description Practice Location Reason(s) For Visit Diagnoses Date Provider Providers Copied on Encounter [facility] NF CARE SF MDM [address] [place] [address], [id number] [place] [address], [id number], [place] tel:[phone] [facility] ear care exam (chief complaint) Impacted cerumen, right ear Tamra-Hard mariela Karolyn. [address] [place] [address], [address], [place], [address], [place]. Referring Provider: Irvin Spence. [address] [place] [address], [address] [facility] [address], [place], [place], [id number], tel:[phone] [facility] Nail dystrophyOnyc hogryphosis 5 [place], [place]. [facility], [address] [place] [address], [place], [place], [id number], [place] tel:[phone] [facility] No Information 5 Mohamud Santa. , [place]. [facility], [address] [place], [place] [address], [place], [place], [id number], [place] tel:[phone] [facility] Other specified peripheral vascular diseasesNail dystrophyOny hogryphosisOt her abnormalities of gait and mobility 5 [place], [place]. HOME/RES VST EST LOW MDM 30 [facility], [address] [place], [place] [address], [place], [place], [id number], [place] tel:[phone] [facility] [place] Tinea unguiumOther specified peripheral vascular diseasesContu satya of left lesser toe(s) without damage to nail, initial encounterCont usion of right lesser toe(s) without damage to nail, initial encounter 4 Maximo Tong [address] [facility], [address], [place], [address], [place]. Referring Provider: Tammi Leung. [facility], [address] [place], [place] [address], [place], [place], [id number], [place] tel:[phone] [facility] [place] Tinea unguiumOther specified peripheral vascular diseases [address] Max[address] Tong [address], [address], [place], [address], [place]. Referring Provider: Irvin Spence. [facility], [address] [place], [place] [address], [place], [place], [id number], [place] tel:[phone] [facility] [place] Tinea unguiumOther specified peripheral vascular diseases 3 Maximo Tong [address] [facility], [address], [place], [address], [place]. [facility], [address] [place] [address], [place], [place], [id number], tel:[phone] [facility] [place] Tinea unguiumOther specified peripheral vascular diseases [address] Max[address]ary. [address], [address], [place], [address], [place]. Referring Provider: Tammi Leung. [address] [place] [address], [address], [place], [place], [id number], tel:[phone] [facility] [place] [place] No Information 3 Maximo Leary. [address], [address], [place], [address], [place]. Family History Family Member Type Diagnosis Age At Onset No Information Payers Payer name Insurance type Covered alliance party ID Authoriza tion(s) Medicare [facility] [id number] [facility] CI [id number] Medicaid [facility] [id number] Social History Type Description Quantity Date Captured Comments Alcohol Use Details Unknown Caffeine Use Details Unknown Tobacco Use Status No Information Smoking Status No Information Sex Female Chief Complaint And Reason For Visit From encounter dated '2025 12:40'. ear care exam (chief complaint) Reason For Referral Reason For Referral No Information Plan Of Treatment Date Type Action Status Appointment Edson Collier BOOKED Appointment Edson Collier BOOKED Patient Education Earwax Blockage: Care I nstructions completed History Of Present Illness Encounter Date Complaint History Of Prese nt Illness No Information Functional Status Date Functional Assessmen t No Information Instructions Date Instruction Additional Infor mation pt states she is not feeling well. refused cerumen removal. Reattempt in 6-9 months or sooner if needed. Related to Impacted cerumen, right ear All documented thick ened nails were reduced in thickness as needed to prevent pain and other symptoms. Some nails were not able to adequately debrided due to sensitivity, and pt request. Related to Onychogryphosis All documented dystr ophic nails were reduced in length as needed to prevent pain and other symptoms. Some nails were not able to adequately trimmed due to sensitivity, and pt request. Related to Nail dystrophy All documented dystr ophic nails were reduced in length as needed to prevent pain and other symptoms. Related to Nail dystrophy All of the documente d thickened nails (which includes those nails 2 mm or more in thickness, and possible mycotic component to the nails) were debrided in both length and thickness using both a nail nipper and an electric rotary hob grinder in an atraumatic fashion; this was performed in an attempt to prevent pain and reduce risk of infection. Alcohol applied to the digits afterwards. Related to Onychogryphosis PT instructed to con tinue use of DME equipment for safety, mobility, and reducing risk of falls/injury. Will continue to monitor. Pt denies recent falls in the past 3 months. Related to Other abnormalities of gait and mobility Discussed using comp ression stockings to assist in localize swelling and venous return, and the medical terminologist benefits of using compression stockings. Reinforced the importance of proper adherence to using the pam hose, and compression stockings. Will continue to monitor. Related to Other specified peripheral vascular diseases Discussed with the ronny medina. No dressing needed at this time. Monitor for infection. Related to Contusion of left lesser toe(s) without damage to nail, initial encounter Discussed with the ronny medina. No dressing needed at this time. Monitor for infection. Related to Contusion of right lesser toe(s) without damage to nail, initial encounter Toenails 1-5 b/l wer e debrided in length and thickness without incident. Follow up in 2-3 months. Related to Tinea unguium Toenails 1-5 b/l wer e debrided in length and thickness without incident. Follow up in 2-3 months. Related to Tinea unguium Toenails 1-5 b/l wer e debrided in length and thickness without incident. Follow up in 2-3 months. Related to Tinea unguium Toenails 1-5 b/l wer e debrided in length and thickness without incident. Follow up in 2-3 months. Related to Tinea unguium Assessments Type Assessment Date assessment Impacted cerumen, right ear Patient Care Teams Name Effective Dates (start - stop) Status Members No Information
[2025-02-13 08:27] LABS: Hematocrit 36.3 % (37.0-47.0); Hemoglobin 11.8 g/dL (12.2-16.2); Mean Corpuscular HGB Conc 32.5 g/dL (31.8-35.4); Mean Corpuscular Hemoglobin 31.4 pg (27.0-31.2); Mean Corpuscular Volume 96.5 fl (81-99); Nucleated Red Blood Cells % 0 %; Platelet Count 254 K/mm3 (142-424); Red Blood Count 3.76 M/mm3 (4.20-5.40); Red Cell Distribution Width-SD 50.0 fL; White Blood Count 5.8 K/mm3 (4.8-10.8)
--- OUTSIDE RECORDS SUMMARY | 2025-02-13 08:29 | XMS_ITS ---
Author Organization [facility] Care Team Providers Care Aoc Plans Intelligence Officer Chief Name Role Phone Yesenia Mast Unavailable Unavailable Irvin Spence Unavailable Unavailable Ez, Carmita Unavailable Unavailable Katharina Valdez Unavailable Unavailable Allergies and adverse reactions Code CodeSystem Substance Reaction Severity StartDate Concern Status [id number] SNOMED CT Penicillins Unknown 03/12/2024 activ e Care Team Name Role Address Phone Organization Dates Irvin Spence PCP [facility] [address] [place], [address], [facility] (Office): : Sofia 03/12/2024 - 02/11/2025 Yesenia Moore [address] [place] [address], [address], [facility] (Office): : Sofia 03/12/2024 - 02/11/2025 Carmita Hui [facility] Sofia 03/12/2024 - 02/11/2025 Katharina Valdez [facility] Carmen jefferson 03/12/2024 - 02/11/2025 Encounters EncounterType Code CodeSystem Description Performer ServiceDe liveryLocation Date Ambulatory Encounter CPT Code = [id number] Muscle atrophy Margie Bustillo [place] Address: [address] [place] [address], [address] [place] [address]. 03/12 Ambulatory Encounter CPT Code = [address] Oropharyngeal dysphagia Margie Black Address: [address] [place] [address], [address] [place] [address]. 03/12 Ambulatory Encounter CPT Code = [address] Unsteady when standing Margie Black Address: [address] [place] [address], [address] [place] [address]. 03/12 Ambulatory Encounter CPT Code = [address] Abnormal gait Margie Black Address: [address] [place] [address], [address] [place] [address]. 03/12 Ambulatory Encounter CPT Code = [address] Cognitive communication disorder Margie Black Address: [address] [place] [address]. 03/12 Ambulatory Encounter CPT Code = [address] COVID-19 Margie Black Address: [address] [place] [address], [address] [place] [address]. 03/12 Ambulatory Encounter CPT Code = 60872 J99 ICD 10 RESPIRATORY DISORDERS IN DISEASES CLASSIFIED ELSEWHERE Margie Black Address: [address] [place] [address], [address] [place] [address]. 03/12 Ambulatory Encounter CPT Code = [address] Delusional disorder Margie Black Address: [address] [place] [address]. 03/12 Ambulatory Encounter CPT Code = [address] Diarrhea Margie Black Address: [address] [place] [address], [address] [place] [address]. 03/12 Ambulatory Encounter CPT Code = [address] Alzheimer''s disease Margie Black Address: [address] [place] [address]. 03/12 Ambulatory Encounter CPT Code = [address] Atrial fibrillation Margie Black Address: [address] [place] [address], [address] [place] [address]. 03/12 Ambulatory Encounter CPT Code = [address] Bilateral acquired absence of breast Margie Black Address: [address] [place] [address], [address] [place] [address]. 03/12 Ambulatory Encounter CPT Code = [address] Implantation procedure Margie Black Address: [address] [place] [address], [address] [place] [address]. 03/12 Ambulatory Encounter CPT Code = [address] Delirium Margie Black Address: [address] [place] [address], [address] [place] [address]. 03/12 Ambulatory Encounter CPT Code = [address] Mixed hyperlipidemia Margie Black Address: [address] [place] [address], [address] [place] [address]. 03/12 Ambulatory Encounter CPT Code = [address] Essential hypertension Margie Black Address: [address] [place] [address], [address] [place] [address]. 03/12 Ambulatory Encounter CPT Code = [address] Generalized anxiety disorder Mragie Black Address: [address] [place] [address], [address] [place] [address]. 03/12 Ambulatory Encounter CPT Code = [address] Seasonal allergic rhinitis Margie Black Address: [address] [place] [address], [address] [place] [address]. 03/12 Ambulatory Encounter CPT Code = [address] Dementia with behavioral disturbance Margie Black Address: [address] [place] [address], [address] [place] [address]. 03/12 Ambulatory Encounter CPT Code = [address] Insomnia Margie Black Address: [address] [place] [address]. 03/12 Ambulatory Encounter CPT Code = [address] Constipation Margie Black Address: [address] [place] [address]. 03/12 Ambulatory Encounter CPT Code = [address] Vitamin D deficiency Margie Black Address: [address] [place] [address]. 03/12 Ambulatory Encounter CPT Code = [address] Iron deficiency Margie Black Address: [address] [place] [address]. 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 03/12 Goals Section Goals Description Status Target Date #2 Resident will remain free from complications related to eczema through next review Active 04/08/2025 Advanced Directives will be honored through next review Active 04/08/2025 Optimal cognition will be ma intained with no avoidable decline through next review Active 04/08/2025 Resident behaviors will not impede care delivery to have needs met through next review Active 04/08/2025 Resident will maintain curre nt level of cognitive function through the review date. Active 04/08/2025 Resident will be able to com municate basic needs on a daily basis through the review date. Active 04/08/2025 Resident will be free from s igns and symptoms of abnormal bleeding through next review date. Active 04/08/2025 Resident will be offered alt ernate meal if she refuses meal through next review Active 04/08/2025 Resident will communicate an y complaints of discomfort and/or pain to staff through next review Active 04/08/2025 Resident will have decreased risk for falls through nursing interventions through next review Active 04/08/2025 Resident will have toileting needs met by staff through nursing interventions daily Active 04/08/2025 Resident's Skin will remain intact through the n ext review. Active 04/08/2025 The resident will be free fr om complications related to infection through the review date. Active 04/08/2025 The resident will be free fr om s/sx of complications of cardiac problems through the review date. Active 04/08/2025 The resident will maintain h eart rate within acceptable limits as determined by MD/ pacemaker settings through review date. Active 04/08/2025 The resident will remain inocencio e of s/sx or complications related to anemia through review date. Active 04/08/2025 The resident will resume usu al activities without further incident through the review date. Active 04/08/2025 The resident's, urinary trac t infection will resolve without complications by the review date. Active 04/08/2025 Will attend/participate in a ctivities of choice through next review Active 04/08/2025 Will benefit from medication without adverse effects through next review. Active 04/08/2025 Will express/exhibit satisfa ction with stay and care through next review Active 04/08/2025 Will have needs met by angie haney of staff as needed through next review Active 04/08/2025 Will maintain maximum functional mobility throug h next review Active 04/08/2025 Will not exhibit an avoidable decline in mood th rough next review Active 04/08/2025 Immunizations Immunization Status Vaccine Details Vaccine Code [...] created date: 4 administe red date: 7 SARS-COV-2 (COVID-19) cancelled created date: 5 consent date: 5 Educated by on 01/19/2025 ELIZABETH Bryant refused vaccine for resident administration Pneumococcal Prevnar 20 completed Pneumococcal conjugate vaccine 20-valent (PCV20), polysaccharide [id number] conjugate, adjuvant, preservative free lotNumber: [id number] expiry: 11/01/2025 Mfg: Pzifer Given 0.5 216 CVX created date: 5 consent date: 5 administe red date: 5 Educated by on 09/01/2024 Resident states no concerns prior to or immediately after vaccination. Resident to be monitored 72 hrs post vaccine per nursing staff COVID-19 Vaccine Dose 1 completed unknown vaccine [...] created date: 4 administe red date: 2 RSV Vaccine completed Respiratory syncytial virus (RSV), vaccine, recombinant, protein subunit RSV prefusion F, adjuvant reconstituted, 0.5 mL, preservative free lotNumber: [id number] Mfg: GLAXCO VELIZ GARCIA Given 0.5 ml Right Deltoid intramuscularly 303 CVX created date: 5 consent date: 5 administe red date: 5 Residents ELIZABETH Bryant gave verbal consent for vaccine administration influenza, trivalent, adjuvanted completed Influenza, adjuvanted, inactivated, trivalent, injectable, preservative free lotNumber: [id number] expiry: 12/01/2024 Mfg: FLUAD 168 CVX created date: consent date: administe red date: Educated by on 07/14/2024 72 hr monitoring initiated Medications Section Medication Name Status Code CodeSystem Dose Route Frequency Admin Type Sig Text Start Date End Date Indication Arexvy Intramuscul ar Suspension Reconstitut ed 120 MCG/0[place] [address] 99 RXNORM 0.5 ml Intram uscula r one time only One Time Only Injec t 0.5 ml intra muscu larly one time only for Preve ntion for 4 Days 02/04 Prevention Ergocalcife rol Oral Capsule 1.25 MG (77488 UT) aborted 60351 10 RXNORM 1 capsu le Oral one time a day Routin e Give 1 capsu le by mouth one time a day every Sat for suppl ement relat ed to ORA IN D DEFIC IENCY , UNSPE CIFIE D (E55. 9) 02/11 supplement Senna S Oral Tablet 8.6-50 MG aborted 1 table t Oral two times a day Routin e Give 1 table t by mouth two times a day for Const ipati on 02/11 Constipatio n SEROquel Oral Tablet 25 MG aborted 96415 8 RXNORM 1 table t Oral two times a day Routin e Give 1 table t by mouth two times a day relat ed to DELIR IUM DUE TO KNOWN PHYSI OLOGI GUME CONDI TION (F05) AND Give 0.5 table t by mouth one time a day relat ed to DELIR IUM DUE TO KNOWN PHYSI OLOGI GUME CONDI TION (F05) 02/11 - 52686 8 RXNORM 0.5 table t Oral one time a day Routin e Give 1 table t by mouth two times a day relat ed to DELIR IUM DUE TO KNOWN PHYSI OLOGI GUME CONDI TION (F05) AND Give 0.5 table t by mouth one time a day relat ed to DELIR IUM DUE TO KNOWN PHYSI OLOGI GUME CONDI TION (F05) 02/11 - dilTIAZem HCl ER Oral Capsule Extended Release 24 Hour 240 MG aborted 13716 7 RXNORM 1 capsu le Oral one time a day Routin e Give 1 capsu le by mouth one time a day for HTN relat ed to [facility] (PRIM SUSANNA) HYPER TENSI ON (I10) 02/11 HTN Melatonin Oral Tablet 3 MG aborted 3 RXNORM 2 table t Oral at bedtime Routin e Give 2 table t by mouth at bedti me for insom mark relat ed to INSOM MARK, UNSPE CIFIE D (G47. 00) 02/11 insomnia MiraLax Oral Packet 17 GM aborted 42595 5 RXNORM 1 packe t Oral one time a day Routin e Give 1 packe t by mouth one time a day for const ipati on 01/13 constipatio n Xarelto Oral Tablet 10 MG aborted 42207 02 RXNORM 1 table t Oral at bedtime Routin e Give 1 table t by mouth at bedti me for afib relat ed to UNSPE CIFIE D ATRIA L FIBRI LLATI ON (I48. 91) 02/11 afib Bisacodyl Rectal Suppository 10 MG aborted 9 RXNORM 1 suppo sitor y Rectal as needed PRN Inser t 1 suppo sitor y recta lly every 24 hours as neede d for Const ipati on 02/11 Constipatio n Atenolol Oral Tablet 100 MG aborted 19721210 RXNORM 1 table t Oral one time a day Routin e Give 1 table t by mouth one time a day for HTN relat ed to [facility] (PRIM SUSANNA) HYPER TENSI ON (I10) 02/11 HTN Aquaphor External Ointment aborted 12896 54 RXNORM n/a n/a Topica l every night nurse Routin e Apply to lesio ns to body topic ally every night nurse for eczem a 02/11 eczema Vistaril Oral Capsule 25 MG aborted 36359 5 RXNORM 1 table t Oral two times a day Routin e Give 1 table t by mouth two times a day for anxie ty 02/11 anxiety Lactulose Oral Solution 20 GM/30ML aborted 76604 7 RXNORM 30 ml Oral as needed PRN Give 30 ml by mouth every 24 hours as neede d for Const ipati on 02/11 Constipatio n Acetaminoph en Tablet 500 MG aborted 0 RXNORM 500 mg Oral as needed PRN Give 500 mg by mouth every 6 hours as neede d for Pain or fever relat ed to ACQUI RED ABSEN CE OF BILAT MATEOL LEIGH TS AND NIPPL ES (Z90. 13);D EMENT IA IN OTHER DISEA SES CLASS IFIED ELSEW HERE, UNSPE CIFIE D SEVER ITY, WITH OTHER BEHAV IORAL DISTU RBANC E (F02. 818) Do NOT excee d 4 GM of Aceta minop hen in 24 hours 02/11 Pain or fever MiraLax Oral Powder 17 GM/SCOOP aborted 39865 5 RXNORM 1 scoop Oral one time a day Routin e Give 1 scoop by mouth one time a day for const ipati on 02/11 constipatio n Gentle Iron Oral Capsule 28-60-0.008 -0.4 MG aborted 1 capsu le Oral one time a day Routin e Give 1 capsu le by mouth one time a day for anemi a 02/11 anemia Arexvy Intramuscul ar Suspension Reconstitut ed 120 MCG/0.[place] [address] 99 RXNORM 0.5 ml Intram uscula r one time only One Time Only Injec t 0.5 ml intra muscu larly one time only for preve ntion until 02/10 11:01 02/10 prevention Betamethaso ne Dipropionat e External Lotion 0.05 % aborted 65088 9 RXNORM n/a n/a Topica l every shift Routin e Apply to lesio ns to body topic ally every shift for eczem a 02/11 eczema Simethicone Oral Capsule 180 MG aborted 17836 4 RXNORM 1 capsu le Oral one time a day Routin e Give 1 capsu le by mouth one time a day for GAS 02/11 GAS Senna Oral Tablet 8.6 MG aborted 1 table t Oral one time a day Routin e Give 1 table t by mouth one time a day for Const ipati on 02/10 Constipatio n Crisaborole External Ointment 2 % aborted 13857 57 RXNORM n/a n/a Topica l every night nurse Routin e Apply to open lesio ns on body topic ally every night nurse for eczem a 02/11 eczema Mental Status Section Date Assessment Total Score Description 12/31/2024 BIMS 05 severe cognitiv e impairment CAM 2 Delirium indica pam PHQ-9 01 minimal depress ion 12/11/2024 BIMS 03 severe cognitiv e impairment CAM 2 Delirium indica pam PHQ-9 03 minimal depress ion Plan of Treatment Section Interventions Intervention Code Code System Display Name Proposed D ate Problems Problem # Description Date of onset Resolved Date Code CodeSystem Concern Status 1 DELUSIONAL DISORDERS [address] active 2 DIARRHEA, UNSPECIFIED 4 06/05/[address] completed 3 COVID-19 4 05/13/[address] completed 4 ACQUIRED ABSENCE OF BILATERAL BREASTS AND NIPPLES [address] active 5 ALZHEIMER'S DISEASE, UNSPECIFIED [address] active 6 COGNITIVE COMMUNICATION DEFICIT 4 05/07/[address] completed 7 CONSTIPATION, UNSPECIFIED [address] active 8 DELIRIUM DUE TO KNOWN PHYSIOLOGICAL CONDITION [address] active 9 DEMENTIA IN OTHER DISEASES CLASSIFIED ELSEWHERE, UNSPECIFIED SEVERITY, WITH OTHER BEHAVIORAL DISTURBANCE [address] active 10 DYSPHAGIA, OROPHARYNGEAL PHASE 4 05/07/[address] completed 11 ESSENTIAL (PRIMARY) HYPERTENSION [address] active 12 GENERALIZED ANXIETY DISORDER [address] active 13 INSOMNIA, UNSPECIFIED [address] active 14 IRON DEFICIENCY [address] active 15 MIXED HYPERLIPIDEMIA [address] active 16 MUSCLE WASTING AND ATROPHY, NOT ELSEWHERE CLASSIFIED, MULTIPLE SITES 4 05/07/[address] completed 17 OTHER ABNORMALITIES OF GAIT AND MOBILITY 4 05/07/[address] completed 18 OTHER SEASONAL ALLERGIC RHINITIS [address] active 19 PRESENCE OF CARDIAC PACEMAKER [address] active 20 UNSPECIFIED ATRIAL FIBRILLATION [address] active 21 UNSTEADINESS ON FEET 4 05/07/[address] completed 22 VITAMIN B12 DEFICIENCY ANEMIA, UNSPECIFIED [address] active 23 VITAMIN D DEFICIENCY, UNSPECIFIED [address] active Reason for Referral No Reasons for Referral Entered Diagnostic Results Result Code Code System Date Test Result Interpretation Reference Range Status Notes [id number] LOINC 01/19 [place], [place] Completed Result for: OUMOU SIMMS ( 1935, F) [id number] 9-9 LOINC 12/30 [facility], [place], [place] Value: SEE BELOW: Units: Normal Final TESTING PERFORMED BY: VARGAS RIVAS [facility] [address] [place] [address] TC3753-9 LOINC 01/12 BASIC MET PNL INCL GFR (BMP) / CBC W/DIFF Completed Result for: OUMOU SIMMS ( 1935, F) 3097-3 LOINC 01/12 BUN/CREATINI NE RATIO Value: 21 Units: Normal 6-25 Final 4544-3 LOINC 01/12 HEMATOCRIT Value: 36.3 Units: % Normal 36.0-48.0 Final 770-8 [facility] 01/12 NEUTROPHILS Value: 67.8 Units: % Normal 40.0-80.0 Final 736-9 [facility] 01/12 LYMPHS Value: 16.3 Units: % Normal 13.0-48.0 Final 33706-8 [facility] 01/12 MONOCYTES Value: 11.7 Units: % Normal 2.0-12.0 Final 713-8 [facility] 01/12 EOS Value: 3.4 Units: % Normal 0.0-8.0 Final 706-2 [facility] 01/12 BASO Value: 0.8 Units: % Normal 0.0-2.0 Final 788-0 [facility] 01/12 RDW Value: 14.8 Units: % Normal 11.0-16.0 Final 14685-2 [facility] 01/12 MPV Value: 8.6 Units: fL Normal 6.5-12.0 Final 49198-0 [facility] 01/12 MCV Value: 95.0 Units: fL Normal 80.0-100.0 Final 718-7 [facility] 01/12 HEMOGLOBIN Value: 11.8 Units: g/dL Low 12.0-16.0 Final 786-4 [facility] 01/12 MCHC Value: 32.6 Units: g/dL Normal 31.0-36.5 Final 777-3 [facility] 01/12 PLATELET Value: 268 Units: K/cmm Normal 150-450 Final 6690-2 [facility] 01/12 WBC Value: 6.1 Units: K/cmm Normal 4.5-10.8 Final 751-8 [facility] 01/12 NEUTS (ABSOLUTE) Value: 4.20 Units: K/uL Normal 1.50-7.60 Final 731-0 [facility] 01/12 LYMPHS (ABSOLUTE) Value: 1.00 Units: K/uL Normal 0.90-5.50 Final 742-7 [facility] 01/12 MONOCYTES (ABSOLUTE) Value: 0.70 Units: K/uL Normal 0.15-1.10 Final 711-2 [facility] 01/12 EOS (ABSOLUTE) Value: 0.20 Units: K/uL Normal 0.00-0.80 Final 789-8 [facility] 01/12 RBC Value: 3.82 Units: 10*3/mm 3 Low 3.90-5.40 Final 2951-2 [facility] 01/12 SODIUM Value: 140 Units: mEq/L Normal 136-145 Final 2823-3 [facility] 01/12 POTASSIUM Value: 4.2 Units: mEq/L Normal 3.5-5.3 Final 2074-0 [facility] 01/12 CHLORIDE Value: 102 Units: mEq/L Normal 98-110 Final 2027-9 [facility] 01/12 CARBON DIOXIDE (CO2) Value: 26 Units: mEq/L Normal 21-33 Final 3094-0 [facility] 01/12 BUN (UREA NITROGEN) Value: 29 Units: mg/dL High 7-25 Final 2160-0 [facility] 01/12 CREATININE Value: 1.4 Units: mg/dL High 0.6-1.3 Final 2345-7 [facility] 01/12 GLUCOSE Value: 79 Units: mg/dL Normal Final GLUCOSE, FASTING 65-99 mg/dL GLUCOSE, NON-FASTIN G 65-125 mg/dL 62660-7 [facility] 01/12 CALCIUM Value: 8.4 Units: mg/dL Low 8.6-10.3 Final 82546-0 [facility] 01/12 GFR- Value: 43 Units: mL/min/ {1.73_m 2} Low >60 Final 01271-1 [facility] 01/12 [id number] CAN BOTSWANAN Value: 35 Units: mL/min/ {1.73_m 2} Low >60 Final Stage of CKD eGFR (mL/min/1. 73 square meters) Stage 1 >/= 90 or > 90 Stage 2 60 - 89 Stage 3 30 - 59 Stage 4 15 - 29 Stage 5 </= 14 or < 15 GFR is reliable for adults 17 to 69 years with stable kidney function. 771-6 [facility] 01/12 NUCLEATED RBC Value: 0.1 Units: {RBC}/1 00{WBC} Normal <1.0 Final 785-6 [facility] 01/12 MCH Value: 30.9 Units: pg Normal 26.0-35.0 Final Test Code Code System Name Date 12/30/2024 BASIC MET PNL INCL GFR (BMP) 01/12/2025 CBC W/DIFF 01/12/2025 BASIC MET PNL INCL GFR (BMP) 01/12/2025 CBC W/DIFF 01/12/2025 Social History Social History Observation Description Start Date End Date Code Code System Current Smoking Status Tobacco smoking consumption unknown 483107815 SNOMED CT Sex Assigned At Female 1935 94433-2 LOINC Gender Identity Female 75280353392583 [address] Sexual Orientation Heterosexual (finding) 81154081 SNOMED CT Vital Signs Code Code System Vitals Name Values and Units Timing Information 54764-7 LOINC Pain Level Value=0.0 02/11/2025 8310-5 LOINC Body Temperature Value=98.0 Units= F 02/11/2025 82581-7 LOINC Weight Cmpds=622.4 Units=Lbs 01/2025 9279-1 LOINC Respiratory Rate Value=12.0 Units=/m in 02/06/2025 8462-4 LOINC Blood Pressure-Diastolic Value=60 Un its=mmHg 02/06/2025 8480-6 LOINC Blood Pressure-Systolic Mukjh=292 Un its=mmHg 02/06/2025 8867-4 LOINC Heart rate Value=76.0 Units=/min 10/2024 19538-4 LOINC O2 % BldC Oximetry Value=94.0 Units= % 01/30/2025 8302-2 LOINC Height Value=64.0 Units=Inches 03/12/2024
[2025-02-13 08:51] LABS: Alanine Aminotransferase 24 U/L (12-78); Albumin Level 3.6 g/dl (3.5-5.0); Albumin/Globulin Ratio 1.3 (1.1-1.8); Alkaline Phosphatase 104 U/L (38-126); Anion Gap 12.3 mEq/L (5-15); Aspartate Amino Transferase 32 U/L (14-36); Bilirubin,Total 0.6 mg/dl (0.2-1.3); Blood Urea Nitrogen 27 mg/dl (7-17); Calcium 8.6 mg/dl (8.4-10.2); Carbon Dioxide 28 mmol/L (22.0-30.0); Chloride 102 mmol/L (98-107); Cholesterol 233 mg/dl (140-200); Creatinine,Serum 1.20 mg/dl (0.52-1.04); Estimated Glomerular Filt Rate 42 ml/min (>60); GFR (African American) 51 ML/MIN (>60); Globulin 2.8 g/dL (1.3-3.2); Glucose 103 mg/dl (74-100); HDL Cholesterol 41 mg/dl (40-60); Potassium 4.3 mmoL/L (3.5-5.1); Sodium 138 mmol/L (136-145); Total Protein,Serum 6.4 g/dl (6.3-8.2); Triglycerides 157 mg/dl (30-150)
== END 2025-02-13 23:59 | disposition home or self-care (01) ==
PROVIDERS: PCP Family Medicine; Visit Provider Family Medicine
DX: D50.9 Iron deficiency anemia, unspecified (principal); E78.1 Pure hyperglyceridemia; N18.9 Chronic kidney disease, unspecified
CPT/HCPCS: 36415; 80053; 80061; 85027